=== PATIENT | female | born 1930 | race Caucasian/White ===

== ENCOUNTER 2020-08-07 14:45 | Inpatient (IN) | payer MEDICARE, OTHER ==
[~2020-08-07] VITALS: Ht 157.5 cm; Wt 45.2 kg
[2020-08-07] MEDS ORDERED: AMLO2.5T2 PO (15:38)
[2020-08-07] MEDS ORDERED: MIRT15TA3 PO (15:38)
[2020-08-07] MEDS ORDERED: CIPR250S2 PO (15:38)
[2020-08-07] MEDS ORDERED: RISP1TAB88 PO ×2 (15:38→15:53)
[2020-08-07] MEDS ORDERED: POTA8TAB PO (15:38)
[2020-08-07] MEDS ORDERED: MELA10TA7 PO (15:38)
[2020-08-07] MEDS ORDERED: RISP2TAB78 PO (15:38)
[2020-08-07] MEDS ORDERED: COLC0.6T45 PO (15:38)
[2020-08-07] MEDS ORDERED: FAMO20TA5 PO (15:38)
[2020-08-07] MEDS ORDERED: LEVO25TA4 PO (15:38)
[2020-08-07 15:39] VITALS: BP 117/74
[2020-08-07] MEDS ORDERED: BISACODYL 10 MG SUPP.RECT RC PRN (15:45)
[2020-08-07] MEDS ORDERED: risperiDONE 1 MG TABLET. PO PRN (15:45)
[2020-08-07] MEDS ORDERED: BISA10SU4 RC (15:53)
[2020-08-07] MEDS ORDERED: QUET50TA5 PO (15:53)
[2020-08-07] MEDS ORDERED: QUET25TA5 PO (15:53)
[2020-08-07] MEDS ORDERED: MAG HYDROX/AL HYDROX/SIMETH 30 ML ORAL.SUSP PO PRN (16:00)
[2020-08-07] MEDS ORDERED: ACETAMINOPHEN 325 MG TABLET PO PRN (16:00)
[2020-08-07] MEDS ORDERED: MAGNESIUM HYDROXIDE 2,400 MG/30 ML ORAL.SUSP. PO PRN (16:00)
[2020-08-07] MEDS ORDERED: METHYL SALICYLATE/MENTHOL TOPICAL OINTMENT 57GM TUBE. TP PRN (16:00)
[2020-08-07 19:47] LABS: BASO % 0 % (0-3); EOS % 0 % (0-3); HEMATOCRIT 35.2 % (36.0-47.0); HEMOGLOBIN 11.5 g/dL (12.0-15.5); LYMPH # 1.4 x10^3/uL (1.0-4.8); LYMPH % 16 % (24-48); MEAN CORPUSCULAR HEMOGLOBIN 29 pg (25-35); MEAN CORPUSCULAR HGB CONC 33 g/dL (31-37); MEAN CORPUSCULAR VOLUME 89 fL (79-100); MONO # 1.3 x10^3/uL (0.0-1.1); MONO % 15 % (0-9); NEUT % 69 % (31-73); PLATELET COUNT 325 x10^3/uL (140-400); RED BLOOD COUNT 3.98 x10^6/uL (3.50-5.40); RED CELL DISTRIBUTION WIDTH 14.7 % (11.5-14.5); WHITE BLOOD COUNT 8.7 x10^3/uL (4.0-11.0)
[2020-08-07 19:50] LABS: ALBUMIN/GLOBULIN RATIO 0.7 (1.0-1.7); CALCIUM 8.5 mg/dL (8.5-10.1); CREATININE 1.2 mg/dL (0.6-1.0); GFR 42.3; MAGNESIUM 2.2 mg/dL (1.8-2.4); POTASSIUM 3.8 mmol/L (3.5-5.1); TOTAL BILIRUBIN 0.3 mg/dL (0.2-1.0); TOTAL PROTEIN 7.1 g/dL (6.4-8.2)
[2020-08-07] MEDS: CIPROFLOXACIN HCL 250 MG TABLET PO SCH (20:02)
[2020-08-07] MEDS: risperiDONE 2 MG TABLET. PO SCH (20:03)
[2020-08-07] MEDS: MIRTAZAPINE 15 MG TABLET PO SCH (20:03)
[2020-08-07] MEDS: MELATONIN 3 MG TABLET PO SCH (20:04)
[2020-08-07] MEDS ORDERED: QUEtiapine 50 MG TABLET. PO SCH (21:00)
[2020-08-07] MEDS ORDERED: QUEtiapine 25 MG TABLET. PO SCH (21:00)
--- NOTE | 2020-08-07 22:09 | PDOC ---
Exam Note: Rambo Note: Please also refer to the separate dictated note~for this date of service dictated separately.~Patient seen individually. Discussed the patient with Nursing staff reviewed the chart.~Reviewed interim history and current functioning. Reviewed vital signs,~Labs/ Radiology~and current medications noted below. Continue current treatment with the changes noted in the dictated addendum note Assessment: Vital Signs/I&O: Vital Signs Date Time Temp Pulse Resp B/P (MAP) Pulse Ox O2 Delivery O2 Flow Rate FiO2 08/07/20 15:39 97.8 99 20 117/74 (88) 95 Room Air Labs: Laboratory Tests Test 08/07/20 19:19 White Blood Count 8.7 x10^3/uL (4.0-11.0) Red Blood Count 3.98 x10^6/uL (3.50-5.40) Hemoglobin 11.5 g/dL (12.0-15.5) L Hematocrit 35.2 % (36.0-47.0) L Mean Corpuscular Volume 89 fL (79-100) Mean Corpuscular Hemoglobin 29 pg (25-35) Mean Corpuscular Hemoglobin Concent 33 g/dL (31-37) Red Cell Distribution Width 14.7 % (11.5-14.5) H Platelet Count 325 x10^3/uL (140-400) Neutrophils (%) (Auto) 69 % (31-73) Lymphocytes (%) (Auto) 16 % (24-48) L Monocytes (%) (Auto) 15 % (0-9) H Eosinophils (%) (Auto) 0 % (0-3) Basophils (%) (Auto) 0 % (0-3) Neutrophils # (Auto) 6.0 x10^3uL (1.8-7.7) Lymphocytes # (Auto) 1.4 x10^3/uL (1.0-4.8) Monocytes # (Auto) 1.3 x10^3/uL (0.0-1.1) H Eosinophils # (Auto) 0.0 x10^3/uL (0.0-0.7) Basophils # (Auto) 0.0 x10^3/uL (0.0-0.2) D-Dimer (Michelle) 6.05 mg/L (0.00-0.50) H Sodium Level 144 mmol/L (136-145) Potassium Level 3.8 mmol/L (3.5-5.1) Chloride Level 107 mmol/L (98-107) Carbon Dioxide Level 27 mmol/L (21-32) Anion Gap 10 (6-14) Blood Urea Nitrogen 20 mg/dL (7-20) Creatinine 1.2 mg/dL (0.6-1.0) H Estimated GFR (Cockcroft-Gault) 42.3 BUN/Creatinine Ratio 17 (6-20) Glucose Level 115 mg/dL (70-99) H Calcium Level 8.5 mg/dL (8.5-10.1) Magnesium Level 2.2 mg/dL (1.8-2.4) Total Bilirubin 0.3 mg/dL (0.2-1.0) Aspartate Amino Transferase (AST) 17 U/L (15-37) Alanine Aminotransferase (ALT) 21 U/L (14-59) Alkaline Phosphatase 133 U/L (46-116) H Total Protein 7.1 g/dL (6.4-8.2) Albumin 3.0 g/dL (3.4-5.0) L Albumin/Globulin Ratio 0.7 (1.0-1.7) L Current Medications: Meds: Current Medications Medications (Trade) Dose Ordered Sig/Kahlil Route PRN Reason Start Time Stop Time Status Last Admin Dose Admin Mirtazapine (Remeron) 15 mg HS PO 08/07/20 21:00 08/07/20 20:03 Risperidone (RisperDAL) 2 mg HS PO 08/07/20 21:00 08/07/20 20:03 Ciprofloxacin (Cipro) 250 mg BID PO 08/07/20 21:00 08/09/20 21:01 08/07/20 20:02 Melatonin (Melatonin) 9 mg HS PO 08/07/20 21:00 08/07/20 20:04 Quetiapine Fumarate (SEROquel) 50 mg HS PO 08/07/20 21:00 08/07/20 23:59 08/07/20 20:03 Olanzapine (ZyPREXA ZYDIS) 1.25 mg PRN Q2HRS PRN PO PSYCHOSIS 08/07/20 18:00 08/07/20 21:25 I have reviewed the current psychotropics carefully including drug interactions. Risk benefit ratio favors no change other than as noted in my dictated progress note. ELLE SALVADOR MD Aug 07, 2020 22:09
--- NOTE | 2020-08-07 22:16 | HP ---
ADMIT DATE: 08/07/2020 PSYCHIATRIC ADMISSION HISTORY/EVALUATION This note covers elements not covered in my initial note of 08/07/2020. IDENTIFYING DATA: The patient is an 89-year-old female referred from [facility] in [place], [place], referred by Dr. Diego, her psychiatrist and the patient's primary care physician, Dr. Luis Carlos Paz on account of worsening confusion and paranoia. The patient believed that staff were murdering people. She was impulsive, agitated, refusing medications. She was ramming the staff with her wheelchair, tugging at and pushing peers, paranoid. Adjustments have been made in her psychotropics including Remeron, Seroquel, Geodon, melatonin and she remained on one-on-one with staff members and at times had to be placed on the floor on a pad due to her disruptive, unmanageable behaviors. Attempts at reduced stimulation, adjustments in her psychotropics had all failed resulting in this referral. CHIEF COMPLAINT: "They are all there. I don't know." The patient was rambling in her speech. Unable to stand or sit still and I had to follow her around the unit. She walked rapidly down the unit. She saw the name plate on one of the doors which said environmental services and she was able to read it accurately. She is being admitted by her power of county attorney, Reid Maza. HISTORY OF PRESENT ILLNESS: The patient has a history of dementia, Alzheimer's vascular type. She has been residing at the above facility, recently getting more confused, paranoid, agitated. She does have a UTI that is being treated, which could be worsening all of the above. She has had some sleep and appetite changes. No active suicidal or homicidal ideation. PAST PSYCHIATRIC HISTORY: As above. MEDICAL HISTORY: Positive for UTI, hypertension, hypothyroidism, gout, hypokalemia, status post subdural hematoma from a fall a few weeks back, GERD, osteoarthritis of cervical radiculopathy. ALLERGIES: EFFEXOR, PROTONIX, PENICILLIN, PERCOCET, ZOLOFT. CODE STATUS: DNR. DIET: Regular. CURRENT PSYCHOTROPICS: Melatonin 10 mg at bedtime, Remeron 15 mg at bedtime, Seroquel 50 mg at bedtime on 08/07/2020 and Seroquel 25 mg b.i.d., Zyprexa was added p.r.n. at admission. FAMILY HISTORY: Noncontributory. SOCIAL HISTORY: No history of alcohol, drug abuse, physical, sexual or elder abuse. She is not known to be a perpetrator. REACTION TO HOSPITALIZATION: The patient oblivious to this. ASSETS: Supportive family, stable living at the facility. REVIEW OF SYSTEMS: No CV, , pulmonary, eye, ENT system symptoms on review. Reliability poor. The patient is rambling in her speech, unable to sit still, distractible. MENTAL STATUS EXAMINATION: The patient is oriented to herself. Insight, judgment, recent and remote memory, attention, concentration, fund of knowledge poor, consistent with her diagnoses. IMPRESSION: Major neurocognitive disorder, Alzheimer, vascular with delusion, depression, behavioral disturbance; anxiety disorder, unspecified; impulse control disorder, unspecified. Rest as above. PLAN: Admit to Geropsychiatry Unit at [facility]. I will see the patient daily individually from a psychiatric standpoint. Medical followup with Dr. Flores/Dr. Bishop. The patient does have a UTI and is on Cipro for this and TSH is 5.84. We will defer to Dr. Bishop/Dr. Flores for adjustment of Synthroid. I will see her daily individually, adjust psychotropics post baseline assessment. ESTIMATED LENGTH OF STAY: 10-12 days. DISPOSITION: Plans back to [facility] when stable. MAN Andrew SALVADOR MD DR: EVERETT/carol JOB#: [id number] / [id number]
[2020-08-08] MEDS: LEVOTHYROXINE 25 MCG TABLET. PO SCH (04:52)
[2020-08-08 06:15] VITALS: BP 134/83
[2020-08-08] MEDS: CIPROFLOXACIN HCL 250 MG TABLET PO SCH ×2 (08:07→20:17)
[2020-08-08] MEDS: FAMOTIDINE 20 MG TABLET PO SCH (08:08)
[2020-08-08] MEDS: COLCHICINE 0.6 MG TABLET. PO SCH (08:09)
[2020-08-08] MEDS: risperiDONE 1 MG TABLET. PO SCH (08:09)
[2020-08-08] MEDS: amLODIPine BESYLATE 2.5 MG TABLET PO SCH (08:10)
[2020-08-08] MEDS: QUEtiapine 25 MG TABLET. PO SCH ×2 (08:11→20:18)
[2020-08-08] MEDS: POTASSIUM CHLORIDE 10 MEQ TABLET.ER. PO SCH (08:11)
[2020-08-08] MEDS ORDERED: LEVOTHYROXINE 25 MCG TABLET. PO SCH (09:00)
--- NOTE | 2020-08-08 10:28 | CONS ---
DATE OF CONSULTATION: 08/08/2020 ATTENDING PHYSICIAN: Dr. Cates. HISTORY OF PRESENT ILLNESS: We are asked to see this patient for medical consultation. The patient is an 89-year-old female, [facility] resident from [place], [place]. She has had underlying dementia with impulsive behavior, agitation, refuse meds, rambling staff as a wheelchair and accusing staff and murdering people. She has some underlying paranoia. She is admitted to the [facility]. PAST MEDICAL HISTORY: Significant for major depression, hallucination, hypertension, hypothyroidism, gout, hypokalemia, generalized anxiety, traumatic brain injury and bleed, subdural hematoma, gastroesophageal reflux disease, cervical radiculopathy and generalized debilitation. ALLERGIES: SHE HAS ALLERGIES TO PENICILLIN, TYLENOL, OXYCODONE, PROTONIX, ZOLOFT, AND EFFEXOR. EXACT REACTIONS UNCLEAR. CURRENT MEDICINES: Include amlodipine, Cipro, colchicine, famotidine, Synthroid, melatonin, Remeron, potassium, Seroquel, and risperidone. SOCIAL HISTORY: She is a nonsmoker, nondrinker. FAMILY HISTORY: Unobtainable. REVIEW OF SYSTEMS: Unobtainable due to the patient's current confused state. PHYSICAL EXAMINATION: GENERAL: When I saw her, this is a pleasant, thin, cachectic female. INITIAL VITAL SIGNS: Showed a blood pressure 117/74, pulse is 99 and regular, temperature 97.8 degrees Fahrenheit, oxygen saturation 95% on room air. HEENT: Head is without trauma. Pupils are reactive. Sclerae are nonicteric. The oropharynx is clear. NECK: Supple. No stridor or lesions. LUNGS: Otherwise clear. CARDIOVASCULAR: Showed regular heart tones. No gallops. ABDOMEN: Soft, scaphoid, nontender. EXTREMITIES: Showed slight edema of the right ankle. The left ankle appears normal. SKIN: Warm and dry. We could not assess a full neurologic exam due to the patient's dementia. PERTINENT LABORATORY STUDIES: The hemoglobin is 11.5 g/dL with white count of 8700. Creatinine is 1.2 mg/dL, nonfasting blood sugar 115 mg/dL. Electrolytes and liver panel all within normal range. ASSESSMENT: 1. This 89-year-old female has profound dementia with behavioral issues. 2. Paranoid behavior. 3. Degenerative arthritis. 4. History of subdural hematoma. 5. Essential hypertension. 6. History of cervical radiculopathy. 7. Hypothyroidism, on replacement. RECOMMENDATIONS: 1. The patient is stable at this time from a medical standpoint. 2. I reviewed her meds and they should be continued. Thank you again for asking me to see the patient for medical consultation. We should follow along closely during her inpatient stay. KIAN DOTSON MD DR: DOMINGO/carol JOB#: [id number] / [id number]
[2020-08-08 11:14] LABS: THYROID STIM HORMONE (TSH) 5.719 uIU/mL (0.358-3.740)
[2020-08-08] MEDS: risperiDONE 2 MG TABLET. PO SCH (20:16)
[2020-08-08] MEDS: MIRTAZAPINE 15 MG TABLET PO SCH (20:17)
[2020-08-08] MEDS: MELATONIN 3 MG TABLET PO SCH (20:17)
--- NOTE | 2020-08-08 21:30 | PDOC ---
Exam Note: Rambo Note: Please also refer to the separate dictated note~for this date of service dictated separately.~Patient seen individually. Discussed the patient with Nursing staff reviewed the chart.~Reviewed interim history and current functioning. Reviewed vital signs,~Labs/ Radiology~and current medications noted below. Continue current treatment with the changes noted in the dictated addendum note Assessment: Vital Signs/I&O: Vital Signs Date Time Temp Pulse Resp B/P (MAP) Pulse Ox O2 Delivery O2 Flow Rate FiO2 08/08/20 08:10 105 134/83 08/08/20 06:15 98.1 18 92 08/07/20 15:39 Room Air I & O 08/07/20 08/07/20 08/08/20 15:00 23:00 07:00 Intake Total 480 ml Balance 480 ml Current Medications: Meds: Current Medications Medications (Trade) Dose Ordered Sig/Kahlil Route PRN Reason Start Time Stop Time Status Last Admin Dose Admin Amlodipine Besylate (Norvasc) 2.5 mg DAILY PO 08/08/20 09:00 08/08/20 08:10 Colchicine (Colcrys) 0.6 mg DAILY PO 08/08/20 09:00 08/08/20 08:09 Famotidine (Pepcid) 20 mg DAILY08 PO 08/08/20 08:00 08/08/20 08:08 Risperidone (RisperDAL) 1 mg DAILY08 PO 08/08/20 08:00 08/08/20 08:09 Potassium Chloride (Klor-Con) 10 meq DAILYWBKFT PO 08/08/20 08:00 08/08/20 08:11 Quetiapine Fumarate (SEROquel) 25 mg 0800,2100 PO 08/08/20 08:00 08/09/20 23:59 08/08/20 20:18 Levothyroxine Sodium (Synthroid) 25 mcg DAILY06 PO 08/08/20 06:00 08/08/20 04:52 I have reviewed the current psychotropics carefully including drug interactions. Risk benefit ratio favors no change other than as noted in my dictated progress note. Diagnosis: Problems: (1) Major neurocognitive disorder (2) Dementia in Alzheimer's disease with delusions (3) Dementia in Alzheimer's disease with depression (4) Dementia in Alzheimer's disease with early onset with behavioral disturbance (5) Dementia, vascular, with delusions (6) Dementia, vascular, with depression (7) Anxiety disorder, unspecified (8) Impulse control disorder, unspecified ELLE SALVADOR MD Aug 08, 2020 21:30
[2020-08-09 01:06] LABS: THYROXINE 5.6 ug/dL (4.5-12.0)
[2020-08-09] MEDS: LEVOTHYROXINE 25 MCG TABLET. PO SCH (05:01)
[2020-08-09 05:37] LABS: HEMOGLOBIN A1C 5.4 % (4.8-5.6)
[2020-08-09 06:33] VITALS: BP 127/83
[2020-08-09] MEDS: CIPROFLOXACIN HCL 250 MG TABLET PO SCH ×2 (07:49→20:05)
[2020-08-09] MEDS: risperiDONE 1 MG TABLET. PO SCH (07:49)
[2020-08-09] MEDS: COLCHICINE 0.6 MG TABLET. PO SCH (07:49)
[2020-08-09] MEDS: QUEtiapine 25 MG TABLET. PO SCH ×2 (07:49→20:07)
[2020-08-09] MEDS: POTASSIUM CHLORIDE 10 MEQ TABLET.ER. PO SCH (07:49)
[2020-08-09] MEDS: FAMOTIDINE 20 MG TABLET PO SCH (07:49)
[2020-08-09] MEDS: amLODIPine BESYLATE 2.5 MG TABLET PO SCH (07:50)
[2020-08-09] MEDS: MIRTAZAPINE 15 MG TABLET PO SCH (20:05)
[2020-08-09] MEDS: MELATONIN 3 MG TABLET PO SCH (20:05)
[2020-08-09] MEDS: risperiDONE 2 MG TABLET. PO SCH (20:05)
--- NOTE | 2020-08-09 22:09 | PDOC ---
Exam Note: Rambo Note: Please also refer to the separate dictated note~for this date of service dictated separately.~Patient seen individually. Discussed the patient with Nursing staff reviewed the chart.~Reviewed interim history and current functioning. Reviewed vital signs,~Labs/ Radiology~and current medications noted below. Continue current treatment with the changes noted in the dictated addendum note Assessment: Vital Signs/I&O: Vital Signs Date Time Temp Pulse Resp B/P (MAP) Pulse Ox O2 Delivery O2 Flow Rate FiO2 08/09/20 16:12 97.6 08/09/20 07:50 100 127/83 08/09/20 06:33 16 94 Room Air I & O 08/08/20 08/08/20 08/09/20 15:00 23:00 07:00 Intake Total 600 ml 240 ml Balance 600 ml 240 ml Current Medications: Meds: Current Medications Medications (Trade) Dose Ordered Sig/Kahlil Route PRN Reason Start Time Stop Time Status Last Admin Dose Admin Amlodipine Besylate (Norvasc) 2.5 mg DAILY PO 08/08/20 09:00 08/09/20 07:50 Colchicine (Colcrys) 0.6 mg DAILY PO 08/08/20 09:00 08/09/20 07:49 Famotidine (Pepcid) 20 mg DAILY08 PO 08/08/20 08:00 08/09/20 07:49 Levothyroxine Sodium (Synthroid) 25 mcg DAILY PO 08/08/20 09:00 08/07/20 19:16 DC Mirtazapine (Remeron) 15 mg HS PO 08/07/20 21:00 08/09/20 20:05 Risperidone (RisperDAL) 1 mg DAILY08 PO 08/08/20 08:00 08/09/20 07:49 Risperidone (RisperDAL) 2 mg HS PO 08/07/20 21:00 08/09/20 20:05 Ciprofloxacin (Cipro) 250 mg BID PO 08/07/20 21:00 08/09/20 21:01 DC 08/09/20 20:05 Melatonin (Melatonin) 9 mg HS PO 08/07/20 21:00 08/09/20 20:05 Potassium Chloride (Klor-Con) 10 meq DAILYWBKFT PO 08/08/20 08:00 08/09/20 07:49 Bisacodyl (Dulcolax Supp) 10 mg PRN DAILY PRN RC 2ND CHOICE CONSTIPATION 08/07/20 15:45 Quetiapine Fumarate (SEROquel) 25 mg 0800,2100 PO 08/07/20 21:00 08/07/20 18:22 DC Quetiapine Fumarate (SEROquel) 50 mg HS PO 08/07/20 21:00 08/07/20 23:59 DC 08/07/20 20:03 Risperidone (RisperDAL) 1 mg PRN TID PRN PO AGITATION/DELIRIUM 08/07/20 15:45 Acetaminophen (Tylenol) 650 mg PRN Q6HRS PRN PO MILD PAIN / TEMP > 100.3'F 08/07/20 16:00 UNV Multi-Ingredient Ointment (Analgesic [place]) 1 aneesh PRN QID PRN TP MUSCLE PAIN 08/07/20 16:00 Al Hydroxide/Mg Hydroxide (Mylanta Plus Xs) 15 ml PRN AFTMEALHC PRN PO DYSPEPSIA 08/07/20 16:00 Magnesium Hydroxide (Milk Of Magnesia) 2,400 mg PRN QHS PRN PO 1ST CHOICE CONSTIPATION 08/07/20 16:00 Olanzapine (ZyPREXA ZYDIS) 1.25 mg PRN Q2HRS PRN PO PSYCHOSIS 08/07/20 18:00 08/08/20 20:19 Quetiapine Fumarate (SEROquel) 25 mg 0800,2100 PO 08/08/20 08:00 08/09/20 23:59 08/09/20 20:07 Levothyroxine Sodium (Synthroid) 25 mcg DAILY06 PO 08/08/20 06:00 08/09/20 05:01 I have reviewed the current psychotropics carefully including drug interactions. Risk benefit ratio favors no change other than as noted in my dictated progress note. Diagnosis: Problems: (1) Impulse control disorder, unspecified (2) Anxiety disorder, unspecified (3) Dementia, vascular, with depression (4) Dementia, vascular, with delusions (5) Dementia in Alzheimer's disease with depression (6) Dementia in Alzheimer's disease with delusions (7) Major neurocognitive disorder (8) Dementia in Alzheimer's disease with early onset with behavioral disturbance ELLE SALVADOR MD Aug 09, 2020 22:09
[2020-08-10] MEDS: LEVOTHYROXINE 25 MCG TABLET. PO SCH (05:58)
[2020-08-10 06:52] VITALS: BP 126/82
[2020-08-10] MEDS: amLODIPine BESYLATE 2.5 MG TABLET PO SCH (08:32)
[2020-08-10] MEDS: COLCHICINE 0.6 MG TABLET. PO SCH (08:32)
[2020-08-10] MEDS: FAMOTIDINE 20 MG TABLET PO SCH (08:32)
[2020-08-10] MEDS: POTASSIUM CHLORIDE 10 MEQ TABLET.ER. PO SCH (08:32)
[2020-08-10] MEDS: risperiDONE 1 MG TABLET. PO SCH (08:33)
[2020-08-10 15:49] VITALS: BP 105/70
[2020-08-10] MEDS: MIRTAZAPINE 15 MG TABLET PO SCH (19:37)
[2020-08-10] MEDS: MELATONIN 3 MG TABLET PO SCH (19:37)
[2020-08-10] MEDS: risperiDONE 2 MG TABLET. PO SCH (19:37)
--- NOTE | 2020-08-10 22:02 | PDOC ---
Exam Note: Rambo Note: Please also refer to the separate dictated note~for this date of service dictated separately.~Patient seen individually. Discussed the patient with Nursing staff reviewed the chart.~Reviewed interim history and current functioning. Reviewed vital signs,~Labs/ Radiology~and current medications noted below. Continue current treatment with the changes noted in the dictated addendum note Assessment: Vital Signs/I&O: Vital Signs Date Time Temp Pulse Resp B/P (MAP) Pulse Ox O2 Delivery O2 Flow Rate FiO2 08/10/20 15:49 98.5 102 17 105/70 (82) 98 08/09/20 06:33 Room Air I & O 08/09/20 08/09/20 08/10/20 14:59 22:59 06:59 Intake Total 440 ml 100 ml Balance 440 ml 100 ml Current Medications: Meds: Current Medications Medications (Trade) Dose Ordered Sig/Kahlil Route PRN Reason Start Time Stop Time Status Last Admin Dose Admin Amlodipine Besylate (Norvasc) 2.5 mg DAILY PO 08/08/20 09:00 08/10/20 08:32 Colchicine (Colcrys) 0.6 mg DAILY PO 08/08/20 09:00 08/10/20 08:32 Famotidine (Pepcid) 20 mg DAILY08 PO 08/08/20 08:00 08/10/20 08:32 Levothyroxine Sodium (Synthroid) 25 mcg DAILY PO 08/08/20 09:00 08/07/20 19:16 DC Mirtazapine (Remeron) 15 mg HS PO 08/07/20 21:00 08/10/20 19:37 Risperidone (RisperDAL) 1 mg DAILY08 PO 08/08/20 08:00 08/10/20 08:33 Risperidone (RisperDAL) 2 mg HS PO 08/07/20 21:00 08/10/20 19:37 Ciprofloxacin (Cipro) 250 mg BID PO 08/07/20 21:00 08/09/20 21:01 DC 08/09/20 20:05 Melatonin (Melatonin) 9 mg HS PO 08/07/20 21:00 08/10/20 19:37 Potassium Chloride (Klor-Con) 10 meq DAILYWBKFT PO 08/08/20 08:00 08/10/20 08:32 Bisacodyl (Dulcolax Supp) 10 mg PRN DAILY PRN RC 2ND CHOICE CONSTIPATION 08/07/20 15:45 Quetiapine Fumarate (SEROquel) 25 mg 0800,2100 PO 08/07/20 21:00 08/07/20 18:22 DC Quetiapine Fumarate (SEROquel) 50 mg HS PO 08/07/20 21:00 08/07/20 23:59 DC 08/07/20 20:03 Risperidone (RisperDAL) 1 mg PRN TID PRN PO AGITATION/DELIRIUM 08/07/20 15:45 Acetaminophen (Tylenol) 650 mg PRN Q6HRS PRN PO MILD PAIN / TEMP > 100.3'F 08/07/20 16:00 UNV Multi-Ingredient Ointment (Analgesic [place]) 1 aneesh PRN QID PRN TP MUSCLE PAIN 08/07/20 16:00 Al Hydroxide/Mg Hydroxide (Mylanta Plus Xs) 15 ml PRN AFTMEALHC PRN PO DYSPEPSIA 08/07/20 16:00 Magnesium Hydroxide (Milk Of Magnesia) 2,400 mg PRN QHS PRN PO 1ST CHOICE CONSTIPATION 08/07/20 16:00 Olanzapine (ZyPREXA ZYDIS) 1.25 mg PRN Q2HRS PRN PO PSYCHOSIS 08/07/20 18:00 08/08/20 20:19 Quetiapine Fumarate (SEROquel) 25 mg 0800,2100 PO 08/08/20 08:00 08/09/20 23:59 DC 08/09/20 20:07 Levothyroxine Sodium (Synthroid) 25 mcg DAILY06 PO 08/08/20 06:00 08/10/20 05:58 I have reviewed the current psychotropics carefully including drug interactions. Risk benefit ratio favors no change other than as noted in my dictated progress note. Diagnosis: Problems: (1) Impulse control disorder, unspecified (2) Anxiety disorder, unspecified (3) Dementia, vascular, with depression (4) Dementia, vascular, with delusions (5) Dementia in Alzheimer's disease with depression (6) Dementia in Alzheimer's disease with delusions (7) Major neurocognitive disorder (8) Dementia in Alzheimer's disease with early onset with behavioral disturbance ELLE SALVADOR MD Aug 10, 2020 22:02
[2020-08-11] MEDS: LEVOTHYROXINE 25 MCG TABLET. PO SCH (05:24)
[2020-08-11 06:07] VITALS: BP 131/83
--- NOTE | 2020-08-11 08:40 | PDOC ---
Exam Note: Rambo Note: This note is a late entry for 08/08/2020 covers elements not covered in my initial note. Subjective: The patient was seen individually in the evening of 08/08/2020 with Jeanette FRIEDMAN, discussed and reviewed the chart. The patient slept 6 hours previous night. Previous night the patient had to be in the quiet hallway because she was extremely restless, agitated, unable to settle down and quite disruptive to others on the unit. She was up at 2 a.m. in the morning. She remains quite confused, intermittently psychotic, agitated. Review of Systems: No CV, , pulmonary, eye, ENT system symptoms on review. Reliability poor. Mental Status Exam: The patient is oriented herself. Insight and judgement, recent and remote memory, attention and concentration, fund of knowledge is poor consistent with her diagnoses. Laboratory Data: Reviewed. Impression: Major neurocognitive disorder Alzheimer vascular with delusion, depression, behavioral disturbance. Anxiety disorder unspecified. Impulse control disorder unspecified. Plan: Continue current psychotropics. UTI is being treated, on Cipro. Once the UTI resolves we will consider further adjustments in her psychotropics depending on her agitation and confusion. Assessment: Vital Signs/I&O: Vital Signs Date Time Temp Pulse Resp B/P (MAP) Pulse Ox O2 Delivery O2 Flow Rate FiO2 08/11/20 06:07 98.1 84 18 131/83 (99) 95 08/09/20 06:33 Room Air I & O 08/10/20 08/10/20 08/11/20 14:59 22:59 06:59 Intake Total 720 ml 380 ml Balance 720 ml 380 ml Current Medications: Meds: Current Medications Medications (Trade) Dose Ordered Sig/Kahlil Route PRN Reason Start Time Stop Time Status Last Admin Dose Admin Amlodipine Besylate (Norvasc) 2.5 mg DAILY PO 08/08/20 09:00 08/10/20 08:32 Colchicine (Colcrys) 0.6 mg DAILY PO 08/08/20 09:00 08/10/20 08:32 Famotidine (Pepcid) 20 mg DAILY08 PO 08/08/20 08:00 08/10/20 08:32 Levothyroxine Sodium (Synthroid) 25 mcg DAILY PO 08/08/20 09:00 08/07/20 19:16 DC Mirtazapine (Remeron) 15 mg HS PO 08/07/20 21:00 08/10/20 19:37 Risperidone (RisperDAL) 1 mg DAILY08 PO 08/08/20 08:00 08/10/20 08:33 Risperidone (RisperDAL) 2 mg HS PO 08/07/20 21:00 08/10/20 19:37 Ciprofloxacin (Cipro) 250 mg BID PO 08/07/20 21:00 08/09/20 21:01 DC 08/09/20 20:05 Melatonin (Melatonin) 9 mg HS PO 08/07/20 21:00 08/10/20 19:37 Potassium Chloride (Klor-Con) 10 meq DAILYWBKFT PO 08/08/20 08:00 08/10/20 08:32 Bisacodyl (Dulcolax Supp) 10 mg PRN DAILY PRN RC 2ND CHOICE CONSTIPATION 08/07/20 15:45 Quetiapine Fumarate (SEROquel) 25 mg 0800,2100 PO 08/07/20 21:00 08/07/20 18:22 DC Quetiapine Fumarate (SEROquel) 50 mg HS PO 08/07/20 21:00 08/07/20 23:59 DC 08/07/20 20:03 Risperidone (RisperDAL) 1 mg PRN TID PRN PO AGITATION/DELIRIUM 08/07/20 15:45 Acetaminophen (Tylenol) 650 mg PRN Q6HRS PRN PO MILD PAIN / TEMP > 100.3'F 08/07/20 16:00 UNV Multi-Ingredient Ointment (Analgesic [place]) 1 aneesh PRN QID PRN TP MUSCLE PAIN 08/07/20 16:00 Al Hydroxide/Mg Hydroxide (Mylanta Plus Xs) 15 ml PRN AFTMEALHC PRN PO DYSPEPSIA 08/07/20 16:00 Magnesium Hydroxide (Milk Of Magnesia) 2,400 mg PRN QHS PRN PO 1ST CHOICE CONSTIPATION 08/07/20 16:00 Olanzapine (ZyPREXA ZYDIS) 1.25 mg PRN Q2HRS PRN PO PSYCHOSIS 08/07/20 18:00 08/08/20 20:19 Quetiapine Fumarate (SEROquel) 25 mg 0800,2100 PO 08/08/20 08:00 08/09/20 23:59 DC 08/09/20 20:07 Levothyroxine Sodium (Synthroid) 25 mcg DAILY06 PO 08/08/20 06:00 08/11/20 05:24 I have reviewed the current psychotropics carefully including drug interactions. Risk benefit ratio favors no change other than as noted in my dictated progress note. Diagnosis: Problems: (1) Impulse control disorder, unspecified (2) Anxiety disorder, unspecified (3) Dementia, vascular, with depression (4) Dementia, vascular, with delusions (5) Dementia in Alzheimer's disease with depression (6) Dementia in Alzheimer's disease with delusions (7) Major neurocognitive disorder (8) Dementia in Alzheimer's disease with early onset with behavioral disturbance ELLE SALVADOR MD Aug 11, 2020 08:39
--- NOTE | 2020-08-11 08:56 | PDOC ---
Exam Note: Rambo Note: This note is a late entry for 08/09/2020 covers elements not covered in my initial note. Subjective: The patient was seen individually in the evening of 08/09/2020 with Jeanette FRIEDMAN, discussed and reviewed the chart. The patient slept 8 hours previous night. She was agitated previous evening. Received Zyprexa p.r.n., did better after that, less combative, remains restless, unsteady on her feet. Review of Systems: No CV, , pulmonary, eye, ENT system symptoms on review. Mental Status Exam: The patient is oriented herself. Insight and judgement, recent and remote memory, attention and concentration, fund of knowledge is poor consistent with her diagnoses. Laboratory Data: Reviewed. Impression: Major neurocognitive disorder Alzheimer vascular with delusion, depression, behavioral disturbance. Anxiety disorder unspecified. Impulse control disorder unspecified. Plan: No change from initial note. Assessment: Vital Signs/I&O: Vital Signs Date Time Temp Pulse Resp B/P (MAP) Pulse Ox O2 Delivery O2 Flow Rate FiO2 08/11/20 06:07 98.1 84 18 131/83 (99) 95 08/09/20 06:33 Room Air I & O 08/10/20 08/10/20 08/11/20 14:59 22:59 06:59 Intake Total 720 ml 380 ml Balance 720 ml 380 ml Current Medications: Meds: Current Medications Medications (Trade) Dose Ordered Sig/Kahlil Route PRN Reason Start Time Stop Time Status Last Admin Dose Admin Amlodipine Besylate (Norvasc) 2.5 mg DAILY PO 08/08/20 09:00 08/10/20 08:32 Colchicine (Colcrys) 0.6 mg DAILY PO 08/08/20 09:00 08/10/20 08:32 Famotidine (Pepcid) 20 mg DAILY08 PO 08/08/20 08:00 08/10/20 08:32 Levothyroxine Sodium (Synthroid) 25 mcg DAILY PO 08/08/20 09:00 08/07/20 19:16 DC Mirtazapine (Remeron) 15 mg HS PO 08/07/20 21:00 08/10/20 19:37 Risperidone (RisperDAL) 1 mg DAILY08 PO 08/08/20 08:00 08/10/20 08:33 Risperidone (RisperDAL) 2 mg HS PO 08/07/20 21:00 08/10/20 19:37 Ciprofloxacin (Cipro) 250 mg BID PO 08/07/20 21:00 08/09/20 21:01 DC 08/09/20 20:05 Melatonin (Melatonin) 9 mg HS PO 08/07/20 21:00 08/10/20 19:37 Potassium Chloride (Klor-Con) 10 meq DAILYWBKFT PO 08/08/20 08:00 08/10/20 08:32 Bisacodyl (Dulcolax Supp) 10 mg PRN DAILY PRN RC 2ND CHOICE CONSTIPATION 08/07/20 15:45 Quetiapine Fumarate (SEROquel) 25 mg 0800,2099 PO 08/07/20 21:00 08/07/20 18:22 DC Quetiapine Fumarate (SEROquel) 50 mg HS PO 08/07/20 21:00 08/07/20 23:59 DC 08/07/20 20:03 Risperidone (RisperDAL) 1 mg PRN TID PRN PO AGITATION/DELIRIUM 08/07/20 15:45 Acetaminophen (Tylenol) 650 mg PRN Q6HRS PRN PO MILD PAIN / TEMP > 100.3'F 08/07/20 16:00 UNV Multi-Ingredient Ointment (Analgesic [place]) 1 aneesh PRN QID PRN TP MUSCLE PAIN 08/07/20 16:00 Al Hydroxide/Mg Hydroxide (Mylanta Plus Xs) 15 ml PRN AFTMEALHC PRN PO DYSPEPSIA 08/07/20 16:00 Magnesium Hydroxide (Milk Of Magnesia) 2,400 mg PRN QHS PRN PO 1ST CHOICE CONSTIPATION 08/07/20 16:00 Olanzapine (ZyPREXA ZYDIS) 1.25 mg PRN Q2HRS PRN PO PSYCHOSIS 08/07/20 18:00 08/08/20 20:19 Quetiapine Fumarate (SEROquel) 25 mg 0800,2099 PO 08/08/20 08:00 08/09/20 23:59 DC 08/09/20 20:07 Levothyroxine Sodium (Synthroid) 25 mcg DAILY06 PO 08/08/20 06:00 08/11/20 05:24 I have reviewed the current psychotropics carefully including drug interactions. Risk benefit ratio favors no change other than as noted in my dictated progress note. 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
--- NOTE | 2020-08-11 09:18 | PDOC ---
Exam Note: Rambo Note: This note is a late entry for 08/10/2020 covers elements not covered in my initial note. Subjective: The patient was reviewed in the morning of 08/10/2020 for a treatment team meeting with Gaby Shaw, Robyn Oseguera and Danielle (social media manager), Paty, activity therapy and Radha FRIEDMAN, discussed and reviewed the chart. The patient slept 7 hours previous night. Her daughter Farhana attended the conference. We reviewed the patients history at length, diagnoses, treatment plan. Farhana shared that her mother is generally very social, interactive and enjoys this. The patient does have UTI and has been started on Cipro. TSH was 5.84. We may need to repeat it again. Review of Systems: She is in a wheelchair and is a high fall risk. No CV, , pulmonary, eye, ENT system symptoms on review. Mental Status Exam: The patient is oriented herself. Insight and judgement, recent and remote memory, attention and concentration, fund of knowledge is poor consistent with her diagnoses. Laboratory Data: Reviewed. Impression: Major neurocognitive disorder Alzheimer vascular with delusion, depression, behavioral disturbance. Anxiety disorder unspecified. Impulse control disorder unspecified. Plan: Continue rest of the psychotropics unchanged. Assessment: Vital Signs/I&O: Vital Signs Date Time Temp Pulse Resp B/P (MAP) Pulse Ox O2 Delivery O2 Flow Rate FiO2 08/11/20 06:07 98.1 84 18 131/83 (99) 95 08/09/20 06:33 Room Air I & O 08/10/20 08/10/20 08/11/20 15:00 23:00 07:00 Intake Total 720 ml 380 ml Balance 720 ml 380 ml Current Medications: Meds: Current Medications Medications (Trade) Dose Ordered Sig/Kahlil Route PRN Reason Start Time Stop Time Status Last Admin Dose Admin Amlodipine Besylate (Norvasc) 2.5 mg DAILY PO 08/08/20 09:00 08/10/20 08:32 Colchicine (Colcrys) 0.6 mg DAILY PO 08/08/20 09:00 08/10/20 08:32 Famotidine (Pepcid) 20 mg DAILY08 PO 08/08/20 08:00 08/10/20 08:32 Levothyroxine Sodium (Synthroid) 25 mcg DAILY PO 08/08/20 09:00 08/07/20 19:16 DC Mirtazapine (Remeron) 15 mg HS PO 08/07/20 21:00 08/10/20 19:37 Risperidone (RisperDAL) 1 mg DAILY08 PO 08/08/20 08:00 08/10/20 08:33 Risperidone (RisperDAL) 2 mg HS PO 08/07/20 21:00 08/10/20 19:37 Ciprofloxacin (Cipro) 250 mg BID PO 08/07/20 21:00 08/09/20 21:01 DC 08/09/20 20:05 Melatonin (Melatonin) 9 mg HS PO 08/07/20 21:00 08/10/20 19:37 Potassium Chloride (Klor-Con) 10 meq DAILYWBKFT PO 08/08/20 08:00 08/10/20 08:32 Bisacodyl (Dulcolax Supp) 10 mg PRN DAILY PRN RC 2ND CHOICE CONSTIPATION 08/07/20 15:45 Quetiapine Fumarate (SEROquel) 25 mg 0800,2099 PO 08/07/20 21:00 08/07/20 18:22 DC Quetiapine Fumarate (SEROquel) 50 mg HS PO 08/07/20 21:00 08/07/20 23:59 DC 08/07/20 20:03 Risperidone (RisperDAL) 1 mg PRN TID PRN PO AGITATION/DELIRIUM 08/07/20 15:45 Acetaminophen (Tylenol) 650 mg PRN Q6HRS PRN PO MILD PAIN / TEMP > 100.3'F 08/07/20 16:00 UNV Multi-Ingredient Ointment (Analgesic [place]) 1 aneesh PRN QID PRN TP MUSCLE PAIN 08/07/20 16:00 Al Hydroxide/Mg Hydroxide (Mylanta Plus Xs) 15 ml PRN AFTMEALHC PRN PO DYSPEPSIA 08/07/20 16:00 Magnesium Hydroxide (Milk Of Magnesia) 2,400 mg PRN QHS PRN PO 1ST CHOICE CONSTIPATION 08/07/20 16:00 Olanzapine (ZyPREXA ZYDIS) 1.25 mg PRN Q2HRS PRN PO PSYCHOSIS 08/07/20 18:00 08/08/20 20:19 Quetiapine Fumarate (SEROquel) 25 mg 0800,2100 PO 08/08/20 08:00 08/09/20 23:59 DC 08/09/20 20:07 Levothyroxine Sodium (Synthroid) 25 mcg DAILY06 PO 08/08/20 06:00 08/11/20 05:24 I have reviewed the current psychotropics carefully including drug interactions. Risk benefit ratio favors no change other than as noted in my dictated progress note. 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
[2020-08-11] MEDS: FAMOTIDINE 20 MG TABLET PO SCH (10:38)
[2020-08-11] MEDS: amLODIPine BESYLATE 2.5 MG TABLET PO SCH (10:38)
[2020-08-11] MEDS: COLCHICINE 0.6 MG TABLET. PO SCH (10:38)
[2020-08-11] MEDS: risperiDONE 1 MG TABLET. PO SCH (10:39)
[2020-08-11] MEDS: POTASSIUM CHLORIDE 10 MEQ TABLET.ER. PO SCH (10:39)
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
[2020-08-11 16:30] VITALS: BP 108/74
[2020-08-11] MEDS: risperiDONE 2 MG TABLET. PO SCH (19:29)
[2020-08-11] MEDS: MIRTAZAPINE 15 MG TABLET PO SCH (19:30)
[2020-08-11] MEDS: MELATONIN 3 MG TABLET PO SCH (19:30)
--- NOTE | 2020-08-11 22:03 | PDOC ---
Exam Note: Rambo Note: Please also refer to the separate dictated note~for this date of service dictated separately.~Patient seen individually. Discussed the patient with Nursing staff reviewed the chart.~Reviewed interim history and current functioning. Reviewed vital signs,~Labs/ Radiology~and current medications noted below. Continue current treatment with the changes noted in the dictated addendum note Assessment: Vital Signs/I&O: Vital Signs Date Time Temp Pulse Resp B/P (MAP) Pulse Ox O2 Delivery O2 Flow Rate FiO2 08/11/20 16:30 97.1 97 16 108/74 (85) 98 08/09/20 06:33 Room Air I & O 08/10/20 08/10/20 08/11/20 15:00 23:00 07:00 Intake Total 720 ml 380 ml Balance 720 ml 380 ml Current Medications: I have reviewed the current psychotropics carefully including drug interactions. Risk benefit ratio favors no change other than as noted in my dictated progress note. Diagnosis: Problems: (1) Impulse control disorder, unspecified (2) Anxiety disorder, unspecified (3) Dementia, vascular, with depression (4) Dementia, vascular, with delusions (5) Dementia in Alzheimer's disease with depression (6) Dementia in Alzheimer's disease with delusions (7) Major neurocognitive disorder (8) Dementia in Alzheimer's disease with early onset with behavioral disturbance ELLE SALVADOR MD Aug 11, 2020 22:03
[2020-08-12] MEDS: LEVOTHYROXINE 25 MCG TABLET. PO SCH (04:53)
[2020-08-12 06:22] VITALS: BP 135/82
--- NOTE | 2020-08-12 09:00 | PDOC ---
Exam Note: Rambo Note: This note is a late entry for 08/11/2020 covers elements not covered in my initial note. Subjective: The patient was seen individually in the evening of 08/11/2020 with Sarah FRIEDMAN, discussed and reviewed the chart. The patient slept 7-3/4 hours previous night. She was somewhat demanding in the evening. She remains confused, not aggressive. Review of Systems: Ambulation impaired in a wheelchair. No CV, , pulmonary, eye, ENT system symptoms on review. Reliability poor. Mental Status Exam: The patient is oriented to herself. Insight and judgement, recent and remote memory, attention and concentration, fund of knowledge is poor consistent with her diagnoses. Laboratory Data: Reviewed. Impression: Major depressive disorder with psychotic features. Major neurocognitive disorder Alzheimer vascular with delusion, depression, behavioral disturbance. Anxiety disorder unspecified. Impulse control disorder unspecified. Plan: Continue rest of the psychotropics unchanged. Assessment: Vital Signs/I&O: Vital Signs Date Time Temp Pulse Resp B/P (MAP) Pulse Ox O2 Delivery O2 Flow Rate FiO2 08/12/20 06:22 97.8 91 18 135/82 (99) 94 08/09/20 06:33 Room Air I & O 08/11/20 08/11/20 08/12/20 15:00 23:00 07:00 Intake Total 560 ml 320 ml Balance 560 ml 320 ml Current Medications: Meds: Current Medications Medications (Trade) Dose Ordered Sig/Kahlil Route PRN Reason Start Time Stop Time Status Last Admin Dose Admin Amlodipine Besylate (Norvasc) 2.5 mg DAILY PO 08/08/20 09:00 08/11/20 10:38 Colchicine (Colcrys) 0.6 mg DAILY PO 08/08/20 09:00 08/11/20 10:38 Famotidine (Pepcid) 20 mg DAILY08 PO 08/08/20 08:00 08/11/20 10:38 Levothyroxine Sodium (Synthroid) 25 mcg DAILY PO 08/08/20 09:00 08/07/20 19:16 DC Mirtazapine (Remeron) 15 mg HS PO 08/07/20 21:00 08/11/20 19:30 Risperidone (RisperDAL) 1 mg DAILY08 PO 08/08/20 08:00 08/11/20 10:39 Risperidone (RisperDAL) 2 mg HS PO 08/07/20 21:00 08/11/20 19:29 Ciprofloxacin (Cipro) 250 mg BID PO 08/07/20 21:00 08/09/20 21:01 DC 08/09/20 20:05 Melatonin (Melatonin) 9 mg HS PO 08/07/20 21:00 08/11/20 19:30 Potassium Chloride (Klor-Con) 10 meq DAILYWBKFT PO 08/08/20 08:00 08/11/20 10:39 Bisacodyl (Dulcolax Supp) 10 mg PRN DAILY PRN RC 2ND CHOICE CONSTIPATION 08/07/20 15:45 Quetiapine Fumarate (SEROquel) 25 mg 0800,2099 PO 08/07/20 21:00 08/07/20 18:22 DC Quetiapine Fumarate (SEROquel) 50 mg HS PO 08/07/20 21:00 08/07/20 23:59 DC 08/07/20 20:03 Risperidone (RisperDAL) 1 mg PRN TID PRN PO AGITATION/DELIRIUM 08/07/20 15:45 Acetaminophen (Tylenol) 650 mg PRN Q6HRS PRN PO MILD PAIN / TEMP > 100.3'F 08/07/20 16:00 UNV Multi-Ingredient Ointment (Analgesic [place]) 1 aneesh PRN QID PRN TP MUSCLE PAIN 08/07/20 16:00 Al Hydroxide/Mg Hydroxide (Mylanta Plus Xs) 15 ml PRN AFTMEALHC PRN PO DYSPEPSIA 08/07/20 16:00 Magnesium Hydroxide (Milk Of Magnesia) 2,400 mg PRN QHS PRN PO 1ST CHOICE CONSTIPATION 08/07/20 16:00 Olanzapine (ZyPREXA ZYDIS) 1.25 mg PRN Q2HRS PRN PO PSYCHOSIS 08/07/20 18:00 08/11/20 17:44 Quetiapine Fumarate (SEROquel) 25 mg 0800,2099 PO 08/08/20 08:00 08/09/20 23:59 DC 08/09/20 20:07 Levothyroxine Sodium (Synthroid) 25 mcg DAILY06 PO 08/08/20 06:00 08/12/20 04:53 I have reviewed the current psychotropics carefully including drug interactions. Risk benefit ratio favors no change other than as noted in my dictated progress note. Diagnosis: Problems: (1) Major depressive disorder with psychotic features (2) Impulse control disorder, unspecified (3) Anxiety disorder, unspecified (4) Dementia, vascular, with depression (5) Dementia, vascular, with delusions (6) Dementia in Alzheimer's disease with depression (7) Dementia in Alzheimer's disease with delusions (8) Major neurocognitive disorder (9) Dementia in Alzheimer's disease with early onset with behavioral disturbance ELLE SALVADOR MD Aug 12, 2020 09:00
[2020-08-12] MEDS: risperiDONE 1 MG TABLET. PO SCH (10:18)
[2020-08-12] MEDS: FAMOTIDINE 20 MG TABLET PO SCH (10:18)
[2020-08-12] MEDS: POTASSIUM CHLORIDE 10 MEQ TABLET.ER. PO SCH (10:18)
[2020-08-12] MEDS: COLCHICINE 0.6 MG TABLET. PO SCH (10:19)
[2020-08-12] MEDS: amLODIPine BESYLATE 2.5 MG TABLET PO SCH (10:20)
[2020-08-12 16:15] VITALS: BP 103/75
[2020-08-12] MEDS: MELATONIN 3 MG TABLET PO SCH (20:27)
[2020-08-12] MEDS: risperiDONE 2 MG TABLET. PO SCH (20:28)
[2020-08-12] MEDS: MIRTAZAPINE 15 MG TABLET PO SCH (20:28)
--- NOTE | 2020-08-12 22:01 | PDOC ---
Exam Note: Rambo Note: Please also refer to the separate dictated note~for this date of service dictated separately.~Patient seen individually. Discussed the patient with Nursing staff reviewed the chart.~Reviewed interim history and current functioning. Reviewed vital signs,~Labs/ Radiology~and current medications noted below. Continue current treatment with the changes noted in the dictated addendum note Assessment: Vital Signs/I&O: Vital Signs Date Time Temp Pulse Resp B/P (MAP) Pulse Ox O2 Delivery O2 Flow Rate FiO2 08/12/20 16:15 98.9 96 20 103/75 (84) 98 08/09/20 06:33 Room Air I & O 08/11/20 08/11/20 08/12/20 15:00 23:00 07:00 Intake Total 560 ml 320 ml Balance 560 ml 320 ml Current Medications: Meds: Current Medications Medications (Trade) Dose Ordered Sig/Kahlil Route PRN Reason Start Time Stop Time Status Last Admin Dose Admin Amlodipine Besylate (Norvasc) 2.5 mg DAILY PO 08/08/20 09:00 08/12/20 10:20 Colchicine (Colcrys) 0.6 mg DAILY PO 08/08/20 09:00 08/12/20 10:19 Famotidine (Pepcid) 20 mg DAILY08 PO 08/08/20 08:00 08/12/20 10:18 Levothyroxine Sodium (Synthroid) 25 mcg DAILY PO 08/08/20 09:00 08/07/20 19:16 DC Mirtazapine (Remeron) 15 mg HS PO 08/07/20 21:00 08/12/20 20:28 Risperidone (RisperDAL) 1 mg DAILY08 PO 08/08/20 08:00 08/12/20 10:18 Risperidone (RisperDAL) 2 mg HS PO 08/07/20 21:00 08/12/20 20:28 Ciprofloxacin (Cipro) 250 mg BID PO 08/07/20 21:00 08/09/20 21:01 DC 08/09/20 20:05 Melatonin (Melatonin) 9 mg HS PO 08/07/20 21:00 08/12/20 20:27 Potassium Chloride (Klor-Con) 10 meq DAILYWBKFT PO 08/08/20 08:00 08/12/20 10:18 Bisacodyl (Dulcolax Supp) 10 mg PRN DAILY PRN RC 2ND CHOICE CONSTIPATION 08/07/20 15:45 Quetiapine Fumarate (SEROquel) 25 mg 0800,2100 PO 08/07/20 21:00 08/07/20 18:22 DC Quetiapine Fumarate (SEROquel) 50 mg HS PO 08/07/20 21:00 08/07/20 23:59 DC 08/07/20 20:03 Risperidone (RisperDAL) 1 mg PRN TID PRN PO AGITATION/DELIRIUM 08/07/20 15:45 Acetaminophen (Tylenol) 650 mg PRN Q6HRS PRN PO MILD PAIN / TEMP > 100.3'F 08/07/20 16:00 UNV Multi-Ingredient Ointment (Analgesic [place]) 1 aneesh PRN QID PRN TP MUSCLE PAIN 08/07/20 16:00 Al Hydroxide/Mg Hydroxide (Mylanta Plus Xs) 15 ml PRN AFTMEALHC PRN PO DYSPEPSIA 08/07/20 16:00 Magnesium Hydroxide (Milk Of Magnesia) 2,400 mg PRN QHS PRN PO 1ST CHOICE CONSTIPATION 08/07/20 16:00 Olanzapine (ZyPREXA ZYDIS) 1.25 mg PRN Q2HRS PRN PO PSYCHOSIS 08/07/20 18:00 08/11/20 17:44 Quetiapine Fumarate (SEROquel) 25 mg 0800,2100 PO 08/08/20 08:00 08/09/20 23:59 DC 08/09/20 20:07 Levothyroxine Sodium (Synthroid) 25 mcg DAILY06 PO 08/08/20 06:00 08/12/20 04:53 I have reviewed the current psychotropics carefully including drug interactions. Risk benefit ratio favors no change other than as noted in my dictated progress note. Diagnosis: Problems: (1) Impulse control disorder, unspecified (2) Anxiety disorder, unspecified (3) Dementia, vascular, with depression (4) Dementia, vascular, with delusions (5) Dementia in Alzheimer's disease with depression (6) Dementia in Alzheimer's disease with delusions (7) Major neurocognitive disorder (8) Dementia in Alzheimer's disease with early onset with behavioral disturbance (9) Major depressive disorder with psychotic features ELLE SALVADOR MD Aug 12, 2020 22:01
[2020-08-13 05:52] VITALS: BP 124/79
[2020-08-13] MEDS: LEVOTHYROXINE 25 MCG TABLET. PO SCH (06:00)
[2020-08-13 06:47] LABS: BASO % 0 % (0-3); EOS % 0 % (0-3); HEMOGLOBIN 9.6 g/dL (12.0-15.5); LYMPH # 1.4 x10^3/uL (1.0-4.8); LYMPH % 28 % (24-48); MEAN CORPUSCULAR HEMOGLOBIN 28 pg (25-35); MEAN CORPUSCULAR HGB CONC 32 g/dL (31-37); MEAN CORPUSCULAR VOLUME 88 fL (79-100); MONO % 19 % (0-9); NEUT # 2.7 x10^3uL (1.8-7.7); NEUT % 53 % (31-73); PLATELET COUNT 324 x10^3/uL (140-400); RED BLOOD COUNT 3.42 x10^6/uL (3.50-5.40); RED CELL DISTRIBUTION WIDTH 14.6 % (11.5-14.5); WHITE BLOOD COUNT 5.1 x10^3/uL (4.0-11.0)
[2020-08-13 06:59] LABS: ALBUMIN 2.3 g/dL (3.4-5.0); ALBUMIN/GLOBULIN RATIO 0.7 (1.0-1.7); CALCIUM 8.2 mg/dL (8.5-10.1); CREATININE 0.8 mg/dL (0.6-1.0); GFR 67.5; POTASSIUM 3.5 mmol/L (3.5-5.1); TOTAL BILIRUBIN 0.2 mg/dL (0.2-1.0); TOTAL PROTEIN 5.7 g/dL (6.4-8.2)
[2020-08-13] MEDS: risperiDONE 1 MG TABLET. PO SCH (08:00)
[2020-08-13] MEDS: COLCHICINE 0.6 MG TABLET. PO SCH (09:02)
[2020-08-13] MEDS: POTASSIUM CHLORIDE 10 MEQ TABLET.ER. PO SCH (09:03)
[2020-08-13] MEDS: amLODIPine BESYLATE 2.5 MG TABLET PO SCH (09:03)
[2020-08-13] MEDS: FAMOTIDINE 20 MG TABLET PO SCH (09:03)
[2020-08-13 15:42] VITALS: BP 111/74
[2020-08-13] MEDS: MELATONIN 3 MG TABLET PO SCH (19:40)
[2020-08-13] MEDS: risperiDONE 2 MG TABLET. PO SCH (19:41)
[2020-08-13] MEDS: MIRTAZAPINE 15 MG TABLET PO SCH (19:41)
--- NOTE | 2020-08-13 22:13 | PDOC ---
Exam Note: Rambo Note: This note is a late entry for 08/12/2020 covers elements not covered in my initial note. Subjective: The patient was seen individually in the evening of 08/12/2020 with Sarah FRIEDMAN, discussed and reviewed the chart. The patient slept 6-1/2 hours previous night. She did have a telephone conversation with her daughter. She remains confused, not aggressive. Review of Systems: Ambulation impaired in wheelchair. No CV, , pulmonary, eye, ENT system symptoms on review. Mental Status Exam: The patient is oriented to herself. Insight and judgement, recent and remote memory, attention and concentration, fund of knowledge is poor consistent with her diagnoses. Laboratory Data: Reviewed. Impression: Major depressive disorder with psychotic features. Major neurocognitive disorder Alzheimer vascular with delusion, depression, behavioral disturbance. Anxiety disorder unspecified. Impulse control disorder unspecified. Plan: Continue rest of the psychotropics unchanged. Assessment: Vital Signs/I&O: Vital Signs Date Time Temp Pulse Resp B/P (MAP) Pulse Ox O2 Delivery O2 Flow Rate FiO2 08/13/20 15:42 98.4 103 16 111/74 (86) 94 08/09/20 06:33 Room Air I & O 08/12/20 08/12/20 08/13/20 15:00 23:00 07:00 Intake Total 720 ml 220 ml Balance 720 ml 220 ml Labs: Laboratory Tests Test 08/13/20 06:30 White Blood Count 5.1 x10^3/uL (4.0-11.0) Red Blood Count 3.42 x10^6/uL (3.50-5.40) L Hemoglobin 9.6 g/dL (12.0-15.5) L Hematocrit 30.0 % (36.0-47.0) L Mean Corpuscular Volume 88 fL (79-100) Mean Corpuscular Hemoglobin 28 pg (25-35) Mean Corpuscular Hemoglobin Concent 32 g/dL (31-37) Red Cell Distribution Width 14.6 % (11.5-14.5) H Platelet Count 324 x10^3/uL (140-400) Neutrophils (%) (Auto) 53 % (31-73) Lymphocytes (%) (Auto) 28 % (24-48) Monocytes (%) (Auto) 19 % (0-9) H Eosinophils (%) (Auto) 0 % (0-3) Basophils (%) (Auto) 0 % (0-3) Neutrophils # (Auto) 2.7 x10^3uL (1.8-7.7) Lymphocytes # (Auto) 1.4 x10^3/uL (1.0-4.8) Monocytes # (Auto) 1.0 x10^3/uL (0.0-1.1) Eosinophils # (Auto) 0.0 x10^3/uL (0.0-0.7) Basophils # (Auto) 0.0 x10^3/uL (0.0-0.2) Sodium Level 147 mmol/L (136-145) H Potassium Level 3.5 mmol/L (3.5-5.1) Chloride Level 112 mmol/L (98-107) H Carbon Dioxide Level 28 mmol/L (21-32) Anion Gap 7 (6-14) Blood Urea Nitrogen 18 mg/dL (7-20) Creatinine 0.8 mg/dL (0.6-1.0) Estimated GFR (Cockcroft-Gault) 67.5 BUN/Creatinine Ratio 23 (6-20) H Glucose Level 89 mg/dL (70-99) Calcium Level 8.2 mg/dL (8.5-10.1) L Total Bilirubin 0.2 mg/dL (0.2-1.0) Aspartate Amino Transferase (AST) 16 U/L (15-37) Alanine Aminotransferase (ALT) 17 U/L (14-59) Alkaline Phosphatase 105 U/L (46-116) Total Protein 5.7 g/dL (6.4-8.2) L Albumin 2.3 g/dL (3.4-5.0) L Albumin/Globulin Ratio 0.7 (1.0-1.7) L Current Medications: Meds: Laboratory Tests Test 08/13/20 06:30 White Blood Count 5.1 x10^3/uL Red Blood Count 3.42 x10^6/uL Hemoglobin 9.6 g/dL Hematocrit 30.0 % Mean Corpuscular Volume 88 fL Mean Corpuscular Hemoglobin 28 pg Mean Corpuscular Hemoglobin Concent 32 g/dL Red Cell Distribution Width 14.6 % Platelet Count 324 x10^3/uL Neutrophils (%) (Auto) 53 % Lymphocytes (%) (Auto) 28 % Monocytes (%) (Auto) 19 % Eosinophils (%) (Auto) 0 % Basophils (%) (Auto) 0 % Neutrophils # (Auto) 2.7 x10^3uL Lymphocytes # (Auto) 1.4 x10^3/uL Monocytes # (Auto) 1.0 x10^3/uL Eosinophils # (Auto) 0.0 x10^3/uL Basophils # (Auto) 0.0 x10^3/uL Sodium Level 147 mmol/L Potassium Level 3.5 mmol/L Chloride Level 112 mmol/L Carbon Dioxide Level 28 mmol/L Anion Gap 7 Blood Urea Nitrogen 18 mg/dL Creatinine 0.8 mg/dL Estimated GFR (Cockcroft-Gault) 67.5 BUN/Creatinine Ratio 23 Glucose Level 89 mg/dL Calcium Level 8.2 mg/dL Total Bilirubin 0.2 mg/dL Aspartate Amino Transf (AST/SGOT) 16 U/L Alanine Aminotransferase (ALT/SGPT) 17 U/L Alkaline Phosphatase 105 U/L Total Protein 5.7 g/dL Albumin 2.3 g/dL Albumin/Globulin Ratio 0.7 Current Medications Medications (Trade) Dose Ordered Sig/Kahlil Route PRN Reason Start Time Stop Time Status Last Admin Dose Admin Amlodipine Besylate (Norvasc) 2.5 mg DAILY PO 08/08/20 09:00 08/13/20 09:03 Colchicine (Colcrys) 0.6 mg DAILY PO 08/08/20 09:00 08/13/20 09:02 Famotidine (Pepcid) 20 mg DAILY08 PO 08/08/20 08:00 08/13/20 09:03 Levothyroxine Sodium (Synthroid) 25 mcg DAILY PO 08/08/20 09:00 08/07/20 19:16 DC Mirtazapine (Remeron) 15 mg HS PO 08/07/20 21:00 08/13/20 19:41 Risperidone (RisperDAL) 1 mg DAILY08 PO 08/08/20 08:00 08/13/20 08:00 Risperidone (RisperDAL) 2 mg HS PO 08/07/20 21:00 08/13/20 19:41 Ciprofloxacin (Cipro) 250 mg BID PO 08/07/20 21:00 08/09/20 21:01 DC 08/09/20 20:05 Melatonin (Melatonin) 9 mg HS PO 08/07/20 21:00 08/13/20 19:40 Potassium Chloride (Klor-Con) 10 meq DAILYWBKFT PO 08/08/20 08:00 08/13/20 09:03 Bisacodyl (Dulcolax Supp) 10 mg PRN DAILY PRN RC 2ND CHOICE CONSTIPATION 08/07/20 15:45 Quetiapine Fumarate (SEROquel) 25 mg 0800,2099 PO 08/07/20 21:00 08/07/20 18:22 DC Quetiapine Fumarate (SEROquel) 50 mg HS PO 08/07/20 21:00 08/07/20 23:59 DC 08/07/20 20:03 Risperidone (RisperDAL) 1 mg PRN TID PRN PO AGITATION/DELIRIUM 08/07/20 15:45 Acetaminophen (Tylenol) 650 mg PRN Q6HRS PRN PO MILD PAIN / TEMP > 100.3'F 08/07/20 16:00 UNV Multi-Ingredient Ointment (Analgesic [place]) 1 aneesh PRN QID PRN TP MUSCLE PAIN 08/07/20 16:00 Al Hydroxide/Mg Hydroxide (Mylanta Plus Xs) 15 ml PRN AFTMEALHC PRN PO DYSPEPSIA 08/07/20 16:00 Magnesium Hydroxide (Milk Of Magnesia) 2,400 mg PRN QHS PRN PO 1ST CHOICE CONSTIPATION 08/07/20 16:00 Olanzapine (ZyPREXA ZYDIS) 1.25 mg PRN Q2HRS PRN PO PSYCHOSIS 08/07/20 18:00 08/11/20 17:44 Quetiapine Fumarate (SEROquel) 25 mg 0800,2099 PO 08/08/20 08:00 08/09/20 23:59 DC 08/09/20 20:07 Levothyroxine Sodium (Synthroid) 25 mcg DAILY06 PO 08/08/20 06:00 08/13/20 06:00 I have reviewed the current psychotropics carefully including drug interactions. Risk benefit ratio favors no change other than as noted in my dictated progress note. 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
--- NOTE | 2020-08-13 22:14 | PDOC ---
Exam Note: Rambo Note: Please also refer to the separate dictated note~for this date of service dictated separately.~Patient seen individually. Discussed the patient with Nursing staff reviewed the chart.~Reviewed interim history and current functioning. Reviewed vital signs,~Labs/ Radiology~and current medications noted below. Continue current treatment with the changes noted in the dictated addendum note Assessment: Vital Signs/I&O: Vital Signs Date Time Temp Pulse Resp B/P (MAP) Pulse Ox O2 Delivery O2 Flow Rate FiO2 08/13/20 15:42 98.4 103 16 111/74 (86) 94 08/09/20 06:33 Room Air I & O 08/12/20 08/12/20 08/13/20 15:00 23:00 07:00 Intake Total 720 ml 220 ml Balance 720 ml 220 ml Labs: Laboratory Tests Test 08/13/20 06:30 White Blood Count 5.1 x10^3/uL (4.0-11.0) Red Blood Count 3.42 x10^6/uL (3.50-5.40) L Hemoglobin 9.6 g/dL (12.0-15.5) L Hematocrit 30.0 % (36.0-47.0) L Mean Corpuscular Volume 88 fL (79-100) Mean Corpuscular Hemoglobin 28 pg (25-35) Mean Corpuscular Hemoglobin Concent 32 g/dL (31-37) Red Cell Distribution Width 14.6 % (11.5-14.5) H Platelet Count 324 x10^3/uL (140-400) Neutrophils (%) (Auto) 53 % (31-73) Lymphocytes (%) (Auto) 28 % (24-48) Monocytes (%) (Auto) 19 % (0-9) H Eosinophils (%) (Auto) 0 % (0-3) Basophils (%) (Auto) 0 % (0-3) Neutrophils # (Auto) 2.7 x10^3uL (1.8-7.7) Lymphocytes # (Auto) 1.4 x10^3/uL (1.0-4.8) Monocytes # (Auto) 1.0 x10^3/uL (0.0-1.1) Eosinophils # (Auto) 0.0 x10^3/uL (0.0-0.7) Basophils # (Auto) 0.0 x10^3/uL (0.0-0.2) Sodium Level 147 mmol/L (136-145) H Potassium Level 3.5 mmol/L (3.5-5.1) Chloride Level 112 mmol/L (98-107) H Carbon Dioxide Level 28 mmol/L (21-32) Anion Gap 7 (6-14) Blood Urea Nitrogen 18 mg/dL (7-20) Creatinine 0.8 mg/dL (0.6-1.0) Estimated GFR (Cockcroft-Gault) 67.5 BUN/Creatinine Ratio 23 (6-20) H Glucose Level 89 mg/dL (70-99) Calcium Level 8.2 mg/dL (8.5-10.1) L Total Bilirubin 0.2 mg/dL (0.2-1.0) Aspartate Amino Transferase (AST) 16 U/L (15-37) Alanine Aminotransferase (ALT) 17 U/L (14-59) Alkaline Phosphatase 105 U/L (46-116) Total Protein 5.7 g/dL (6.4-8.2) L Albumin 2.3 g/dL (3.4-5.0) L Albumin/Globulin Ratio 0.7 (1.0-1.7) L Current Medications: Meds: Laboratory Tests Test 08/13/20 06:30 White Blood Count 5.1 x10^3/uL Red Blood Count 3.42 x10^6/uL Hemoglobin 9.6 g/dL Hematocrit 30.0 % Mean Corpuscular Volume 88 fL Mean Corpuscular Hemoglobin 28 pg Mean Corpuscular Hemoglobin Concent 32 g/dL Red Cell Distribution Width 14.6 % Platelet Count 324 x10^3/uL Neutrophils (%) (Auto) 53 % Lymphocytes (%) (Auto) 28 % Monocytes (%) (Auto) 19 % Eosinophils (%) (Auto) 0 % Basophils (%) (Auto) 0 % Neutrophils # (Auto) 2.7 x10^3uL Lymphocytes # (Auto) 1.4 x10^3/uL Monocytes # (Auto) 1.0 x10^3/uL Eosinophils # (Auto) 0.0 x10^3/uL Basophils # (Auto) 0.0 x10^3/uL Sodium Level 147 mmol/L Potassium Level 3.5 mmol/L Chloride Level 112 mmol/L Carbon Dioxide Level 28 mmol/L Anion Gap 7 Blood Urea Nitrogen 18 mg/dL Creatinine 0.8 mg/dL Estimated GFR (Cockcroft-Gault) 67.5 BUN/Creatinine Ratio 23 Glucose Level 89 mg/dL Calcium Level 8.2 mg/dL Total Bilirubin 0.2 mg/dL Aspartate Amino Transf (AST/SGOT) 16 U/L Alanine Aminotransferase (ALT/SGPT) 17 U/L Alkaline Phosphatase 105 U/L Total Protein 5.7 g/dL Albumin 2.3 g/dL Albumin/Globulin Ratio 0.7 Current Medications Medications (Trade) Dose Ordered Sig/Kahlil Route PRN Reason Start Time Stop Time Status Last Admin Dose Admin Amlodipine Besylate (Norvasc) 2.5 mg DAILY PO 08/08/20 09:00 08/13/20 09:03 Colchicine (Colcrys) 0.6 mg DAILY PO 08/08/20 09:00 08/13/20 09:02 Famotidine (Pepcid) 20 mg DAILY08 PO 08/08/20 08:00 08/13/20 09:03 Levothyroxine Sodium (Synthroid) 25 mcg DAILY PO 08/08/20 09:00 08/07/20 19:16 DC Mirtazapine (Remeron) 15 mg HS PO 08/07/20 21:00 08/13/20 19:41 Risperidone (RisperDAL) 1 mg DAILY08 PO 08/08/20 08:00 08/13/20 08:00 Risperidone (RisperDAL) 2 mg HS PO 08/07/20 21:00 08/13/20 19:41 Ciprofloxacin (Cipro) 250 mg BID PO 08/07/20 21:00 08/09/20 21:01 DC 08/09/20 20:05 Melatonin (Melatonin) 9 mg HS PO 08/07/20 21:00 08/13/20 19:40 Potassium Chloride (Klor-Con) 10 meq DAILYWBKFT PO 08/08/20 08:00 08/13/20 09:03 Bisacodyl (Dulcolax Supp) 10 mg PRN DAILY PRN RC 2ND CHOICE CONSTIPATION 08/07/20 15:45 Quetiapine Fumarate (SEROquel) 25 mg 0800,2100 PO 08/07/20 21:00 08/07/20 18:22 DC Quetiapine Fumarate (SEROquel) 50 mg HS PO 08/07/20 21:00 08/07/20 23:59 DC 08/07/20 20:03 Risperidone (RisperDAL) 1 mg PRN TID PRN PO AGITATION/DELIRIUM 08/07/20 15:45 Acetaminophen (Tylenol) 650 mg PRN Q6HRS PRN PO MILD PAIN / TEMP > 100.3'F 08/07/20 16:00 UNV Multi-Ingredient Ointment (Analgesic [place]) 1 aneesh PRN QID PRN TP MUSCLE PAIN 08/07/20 16:00 Al Hydroxide/Mg Hydroxide (Mylanta Plus Xs) 15 ml PRN AFTMEALHC PRN PO DYSPEPSIA 08/07/20 16:00 Magnesium Hydroxide (Milk Of Magnesia) 2,400 mg PRN QHS PRN PO 1ST CHOICE CONSTIPATION 08/07/20 16:00 Olanzapine (ZyPREXA ZYDIS) 1.25 mg PRN Q2HRS PRN PO PSYCHOSIS 08/07/20 18:00 08/11/20 17:44 Quetiapine Fumarate (SEROquel) 25 mg 0800,2100 PO 08/08/20 08:00 08/09/20 23:59 DC 08/09/20 20:07 Levothyroxine Sodium (Synthroid) 25 mcg DAILY06 PO 08/08/20 06:00 08/13/20 06:00 I have reviewed the current psychotropics carefully including drug interactions. Risk benefit ratio favors no change other than as noted in my dictated progress note. 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
[2020-08-14] MEDS: LEVOTHYROXINE 25 MCG TABLET. PO SCH (06:00)
[2020-08-14 06:11] VITALS: BP 136/83
[2020-08-14] MEDS: risperiDONE 1 MG TABLET. PO SCH (08:13)
[2020-08-14] MEDS: amLODIPine BESYLATE 2.5 MG TABLET PO SCH (08:13)
[2020-08-14] MEDS: COLCHICINE 0.6 MG TABLET. PO SCH (08:13)
[2020-08-14] MEDS: POTASSIUM CHLORIDE 10 MEQ TABLET.ER. PO SCH (08:14)
[2020-08-14] MEDS: FAMOTIDINE 20 MG TABLET PO SCH (08:14)
--- NOTE | 2020-08-14 09:17 | PDOC ---
Exam Note: Rambo Note: This note is a late entry for 08/13/2020 covers elements not covered in my initial note. Subjective: The patient was seen individually in the evening of 08/13/2020 with Sarah FRIEDMAN, discussed and reviewed the chart. The patient slept 6-1/4 hours previous night. She had been on the telephone with her daughter and seems to recognize the daughter over the phone. Review of Systems: Ambulation impaired in wheelchair. No CV, , pulmonary, e ye, ENT system symptoms on review. Reliability poor. Mental Status Exam: The patient is oriented to herself. Insight and judgement, recent and remote memory, attention and concentration, fund of knowledge is poor consistent with her diagnoses. Laboratory Data: Reviewed. Impression: Major depressive disorder with psychotic features. Major neurocognitive disorder Alzheimer vascular with delusion, depression, behavioral disturbance. Anxiety disorder unspecified. Impulse control disorder unspecified. Plan: Continue rest of the psychotropics unchanged. Assessment: Vital Signs/I&O: Vital Signs Date Time Temp Pulse Resp B/P (MAP) Pulse Ox O2 Delivery O2 Flow Rate FiO2 08/14/20 08:13 87 136/83 08/14/20 06:11 98.5 16 94 Room Air I & O 08/13/20 08/13/20 08/14/20 15:00 23:00 07:00 Intake Total 600 ml 460 ml Balance 600 ml 460 ml Current Medications: Meds: Current Medications Medications (Trade) Dose Ordered Sig/Kahlil Route PRN Reason Start Time Stop Time Status Last Admin Dose Admin Amlodipine Besylate (Norvasc) 2.5 mg DAILY PO 08/08/20 09:00 08/14/20 08:13 Colchicine (Colcrys) 0.6 mg DAILY PO 08/08/20 09:00 08/14/20 08:13 Famotidine (Pepcid) 20 mg DAILY08 PO 08/08/20 08:00 08/14/20 08:14 Levothyroxine Sodium (Synthroid) 25 mcg DAILY PO 08/08/20 09:00 08/07/20 19:16 DC Mirtazapine (Remeron) 15 mg HS PO 08/07/20 21:00 08/13/20 19:41 Risperidone (RisperDAL) 1 mg DAILY08 PO 08/08/20 08:00 08/14/20 08:13 Risperidone (RisperDAL) 2 mg HS PO 08/07/20 21:00 08/13/20 19:41 Ciprofloxacin (Cipro) 250 mg BID PO 08/07/20 21:00 08/09/20 21:01 DC 08/09/20 20:05 Melatonin (Melatonin) 9 mg HS PO 08/07/20 21:00 08/13/20 19:40 Potassium Chloride (Klor-Con) 10 meq DAILYWBKFT PO 08/08/20 08:00 08/14/20 08:14 Bisacodyl (Dulcolax Supp) 10 mg PRN DAILY PRN RC 2ND CHOICE CONSTIPATION 08/07/20 15:45 Quetiapine Fumarate (SEROquel) 25 mg 0800,2099 PO 08/07/20 21:00 08/07/20 18:22 DC Quetiapine Fumarate (SEROquel) 50 mg HS PO 08/07/20 21:00 08/07/20 23:59 DC 08/07/20 20:03 Risperidone (RisperDAL) 1 mg PRN TID PRN PO AGITATION/DELIRIUM 08/07/20 15:45 Acetaminophen (Tylenol) 650 mg PRN Q6HRS PRN PO MILD PAIN / TEMP > 100.3'F 08/07/20 16:00 UNV Multi-Ingredient Ointment (Analgesic [place]) 1 aneesh PRN QID PRN TP MUSCLE PAIN 08/07/20 16:00 Al Hydroxide/Mg Hydroxide (Mylanta Plus Xs) 15 ml PRN AFTMEALHC PRN PO DYSPEPSIA 08/07/20 16:00 Magnesium Hydroxide (Milk Of Magnesia) 2,400 mg PRN QHS PRN PO 1ST CHOICE CONSTIPATION 08/07/20 16:00 Olanzapine (ZyPREXA ZYDIS) 1.25 mg PRN Q2HRS PRN PO PSYCHOSIS 08/07/20 18:00 08/11/20 17:44 Quetiapine Fumarate (SEROquel) 25 mg 0800,2099 PO 08/08/20 08:00 08/09/20 23:59 DC 08/09/20 20:07 Levothyroxine Sodium (Synthroid) 25 mcg DAILY06 PO 08/08/20 06:00 08/14/20 06:00 I have reviewed the current psychotropics carefully including drug interactions. Risk benefit ratio favors no change other than as noted in my dictated progress note. 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
[2020-08-14 16:01] VITALS: BP 109/76
[2020-08-14] MEDS: risperiDONE 2 MG TABLET. PO SCH (20:36)
[2020-08-14] MEDS: MELATONIN 3 MG TABLET PO SCH (20:36)
[2020-08-14] MEDS: MIRTAZAPINE 15 MG TABLET PO SCH (20:37)
--- NOTE | 2020-08-14 21:44 | PDOC ---
Exam Note: Rambo Note: Please also refer to the separate dictated note~for this date of service dictated separately.~Patient seen individually. Discussed the patient with Nursing staff reviewed the chart.~Reviewed interim history and current functioning. Reviewed vital signs,~Labs/ Radiology~and current medications noted below. Continue current treatment with the changes noted in the dictated addendum note Assessment: Vital Signs/I&O: Vital Signs Date Time Temp Pulse Resp B/P (MAP) Pulse Ox O2 Delivery O2 Flow Rate FiO2 08/14/20 16:01 98.8 99 18 109/76 (87) 97 Room Air I & O 08/13/20 08/13/20 08/14/20 15:00 23:00 07:00 Intake Total 600 ml 460 ml Balance 600 ml 460 ml Current Medications: Meds: Current Medications Medications (Trade) Dose Ordered Sig/Kahlil Route PRN Reason Start Time Stop Time Status Last Admin Dose Admin Amlodipine Besylate (Norvasc) 2.5 mg DAILY PO 08/08/20 09:00 08/14/20 08:13 Colchicine (Colcrys) 0.6 mg DAILY PO 08/08/20 09:00 08/14/20 08:13 Famotidine (Pepcid) 20 mg DAILY08 PO 08/08/20 08:00 08/14/20 08:14 Levothyroxine Sodium (Synthroid) 25 mcg DAILY PO 08/08/20 09:00 08/07/20 19:16 DC Mirtazapine (Remeron) 15 mg HS PO 08/07/20 21:00 08/14/20 20:37 Risperidone (RisperDAL) 1 mg DAILY08 PO 08/08/20 08:00 08/14/20 08:13 Risperidone (RisperDAL) 2 mg HS PO 08/07/20 21:00 08/14/20 20:36 Ciprofloxacin (Cipro) 250 mg BID PO 08/07/20 21:00 08/09/20 21:01 DC 08/09/20 20:05 Melatonin (Melatonin) 9 mg HS PO 08/07/20 21:00 08/14/20 20:36 Potassium Chloride (Klor-Con) 10 meq DAILYWBKFT PO 08/08/20 08:00 08/14/20 08:14 Bisacodyl (Dulcolax Supp) 10 mg PRN DAILY PRN RC 2ND CHOICE CONSTIPATION 08/07/20 15:45 Quetiapine Fumarate (SEROquel) 25 mg 0800,2100 PO 08/07/20 21:00 08/07/20 18:22 DC Quetiapine Fumarate (SEROquel) 50 mg HS PO 08/07/20 21:00 08/07/20 23:59 DC 08/07/20 20:03 Risperidone (RisperDAL) 1 mg PRN TID PRN PO AGITATION/DELIRIUM 08/07/20 15:45 Acetaminophen (Tylenol) 650 mg PRN Q6HRS PRN PO MILD PAIN / TEMP > 100.3'F 08/07/20 16:00 UNV Multi-Ingredient Ointment (Analgesic [place]) 1 aneesh PRN QID PRN TP MUSCLE PAIN 08/07/20 16:00 Al Hydroxide/Mg Hydroxide (Mylanta Plus Xs) 15 ml PRN AFTMEALHC PRN PO DYSPEPSIA 08/07/20 16:00 Magnesium Hydroxide (Milk Of Magnesia) 2,400 mg PRN QHS PRN PO 1ST CHOICE CONSTIPATION 08/07/20 16:00 Olanzapine (ZyPREXA ZYDIS) 1.25 mg PRN Q2HRS PRN PO PSYCHOSIS 08/07/20 18:00 08/11/20 17:44 Quetiapine Fumarate (SEROquel) 25 mg 0800,2100 PO 08/08/20 08:00 08/09/20 23:59 DC 08/09/20 20:07 Levothyroxine Sodium (Synthroid) 25 mcg DAILY06 PO 08/08/20 06:00 08/14/20 06:00 I have reviewed the current psychotropics carefully including drug interactions. Risk benefit ratio favors no change other than as noted in my dictated progress note. 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
[2020-08-15] MEDS: LEVOTHYROXINE 25 MCG TABLET. PO SCH (05:22)
[2020-08-15 07:06] VITALS: BP 126/84
[2020-08-15] MEDS: COLCHICINE 0.6 MG TABLET. PO SCH (08:39)
[2020-08-15] MEDS: POTASSIUM CHLORIDE 10 MEQ TABLET.ER. PO SCH (08:39)
[2020-08-15] MEDS: FAMOTIDINE 20 MG TABLET PO SCH (08:39)
[2020-08-15] MEDS: amLODIPine BESYLATE 2.5 MG TABLET PO SCH (08:44)
[2020-08-15] MEDS: risperiDONE 1 MG TABLET. PO SCH (08:44)
--- NOTE | 2020-08-15 08:47 | PDOC ---
Exam Note: Rambo Note: This note is a late entry for 08/14/2020 covers elements not covered in my initial note. Subjective: The patient was seen individually in the evening of 08/14/2020 with Uli FRIEDMAN, discussed and reviewed the chart. The patient slept 7-1/2 hours previous night. Overall the patient has not been agitated, disruptive, still somewhat psychotic, certainly confused. Review of Systems: Ambulation impaired in wheelchair. No CV, , pulmonary, eye, ENT system symptoms on review. Reliability poor. Mental Status Exam: The patient is oriented to herself. Insight and judgement, recent and remote memory, attention and concentration, fund of knowledge is poor consistent with her diagnoses. Laboratory Data: Reviewed. Impression: Major depressive disorder with psychotic features. Major neurocognitive disorder Alzheimer vascular with delusion, depression, behavioral disturbance. Anxiety disorder unspecified. Impulse control disorder unspecif ied. Plan: Continue rest of the psychotropics unchanged. Dr. Lepe will be covering for me from Monday through August 29, 2020. Assessment: Vital Signs/I&O: Vital Signs Date Time Temp Pulse Resp B/P (MAP) Pulse Ox O2 Delivery O2 Flow Rate FiO2 08/15/20 08:44 91 126/84 08/15/20 07:06 97.6 20 96 Room Air I & O 08/14/20 08/14/20 08/15/20 15:00 23:00 07:00 Intake Total 600 ml 480 ml Balance 600 ml 480 ml Current Medications: Meds: Current Medications Medications (Trade) Dose Ordered Sig/Kahlil Route PRN Reason Start Time Stop Time Status Last Admin Dose Admin Amlodipine Besylate (Norvasc) 2.5 mg DAILY PO 08/08/20 09:00 08/15/20 08:44 Colchicine (Colcrys) 0.6 mg DAILY PO 08/08/20 09:00 08/15/20 08:39 Famotidine (Pepcid) 20 mg DAILY08 PO 08/08/20 08:00 08/15/20 08:39 Levothyroxine Sodium (Synthroid) 25 mcg DAILY PO 08/08/20 09:00 08/07/20 19:16 DC Mirtazapine (Remeron) 15 mg HS PO 08/07/20 21:00 08/14/20 20:37 Risperidone (RisperDAL) 1 mg DAILY08 PO 08/08/20 08:00 08/15/20 08:44 Risperidone (RisperDAL) 2 mg HS PO 08/07/20 21:00 08/14/20 20:36 Ciprofloxacin (Cipro) 250 mg BID PO 08/07/20 21:00 08/09/20 21:01 DC 08/09/20 20:05 Melatonin (Melatonin) 9 mg HS PO 08/07/20 21:00 08/14/20 20:36 Potassium Chloride (Klor-Con) 10 meq DAILYWBKFT PO 08/08/20 08:00 08/15/20 08:39 Bisacodyl (Dulcolax Supp) 10 mg PRN DAILY PRN RC 2ND CHOICE CONSTIPATION 08/07/20 15:45 Quetiapine Fumarate (SEROquel) 25 mg 0800,2099 PO 08/07/20 21:00 08/07/20 18:22 DC Quetiapine Fumarate (SEROquel) 50 mg HS PO 08/07/20 21:00 08/07/20 23:59 DC 08/07/20 20:03 Risperidone (RisperDAL) 1 mg PRN TID PRN PO AGITATION/DELIRIUM 08/07/20 15:45 Acetaminophen (Tylenol) 650 mg PRN Q6HRS PRN PO MILD PAIN / TEMP > 100.3'F 08/07/20 16:00 UNV Multi-Ingredient Ointment (Analgesic [place]) 1 aneesh PRN QID PRN TP MUSCLE PAIN 08/07/20 16:00 Al Hydroxide/Mg Hydroxide (Mylanta Plus Xs) 15 ml PRN AFTMEALHC PRN PO DYSPEPSIA 08/07/20 16:00 Magnesium Hydroxide (Milk Of Magnesia) 2,400 mg PRN QHS PRN PO 1ST CHOICE CONSTIPATION 08/07/20 16:00 Olanzapine (ZyPREXA ZYDIS) 1.25 mg PRN Q2HRS PRN PO PSYCHOSIS 08/07/20 18:00 08/11/20 17:44 Quetiapine Fumarate (SEROquel) 25 mg 0800,2099 PO 08/08/20 08:00 08/09/20 23:59 DC 08/09/20 20:07 Levothyroxine Sodium (Synthroid) 25 mcg DAILY06 PO 08/08/20 06:00 08/15/20 05:22 I have reviewed the current psychotropics carefully including drug interactions. Risk benefit ratio favors no change other than as noted in my dictated progress note. 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
[2020-08-15] MEDS: NYSTATIN 100,000 UNITS/ML ORAL SUSPENSION 60ML BOTTLE. SWSW SCH ×3 (13:00→21:00)
[2020-08-15 16:56] VITALS: BP 95/62
[2020-08-15] MEDS: risperiDONE 2 MG TABLET. PO SCH (19:58)
[2020-08-15] MEDS: MIRTAZAPINE 15 MG TABLET PO SCH (19:58)
[2020-08-15] MEDS: MELATONIN 3 MG TABLET PO SCH (19:59)
[2020-08-15] MEDS: traMADol 50 MG TABLET PO PRN (19:59)
--- NOTE | 2020-08-15 21:40 | PN ---
DATE: 08/15/2020 SUBJECTIVE: The patient was seen today, met with the staff, chart reviewed. The patient continues to be withdrawn, confused, unsteady on her feet. Currently on wheelchair. The patient is being closely watched almost 1:1 because of risk for falls and she is also restless. She has difficulty following directions. OBSERVATION: VITAL SIGNS: Temperature 97.6, blood pressure 126/84, pulse 91, respirations 20, O2 saturations 100%. CURRENT MEDICATIONS: Reviewed include Risperdal 1 mg daily, melatonin 9 mg at night, Risperdal 2 mg at night, mirtazapine 15 mg at night, also Risperdal 1 mg 3 times a day p.r.n. The patient's lab reviewed. The patient is not exhibiting any side effects to the medications. ASSESSMENT: Major neurocognitive disorder, most likely Alzheimer's, vascular with delusions, depression, and behavioral disturbances. Also, impulse control problems. PLAN: To continue with the current treatment plan. LENGTH OF STAY: 7 days. LE VALENTINE MD DR: ARNOLD/carol JOB#: [id number] / [id number] MARILOU
[2020-08-16] MEDS: LEVOTHYROXINE 25 MCG TABLET. PO SCH (05:30)
[2020-08-16 06:08] VITALS: BP 132/86
[2020-08-16] MEDS: FAMOTIDINE 20 MG TABLET PO SCH (08:17)
[2020-08-16] MEDS: risperiDONE 1 MG TABLET. PO SCH (08:17)
[2020-08-16] MEDS: amLODIPine BESYLATE 2.5 MG TABLET PO SCH (08:17)
[2020-08-16] MEDS: COLCHICINE 0.6 MG TABLET. PO SCH (08:19)
[2020-08-16] MEDS: POTASSIUM CHLORIDE 10 MEQ TABLET.ER. PO SCH (08:19)
[2020-08-16] MEDS: NYSTATIN 100,000 UNITS/ML ORAL SUSPENSION 60ML BOTTLE. SWSW SCH ×4 (09:00→20:02)
[2020-08-16 16:30] VITALS: BP 111/75
[2020-08-16] MEDS: MELATONIN 3 MG TABLET PO SCH (20:00)
[2020-08-16] MEDS: traMADol 50 MG TABLET PO PRN (20:01)
[2020-08-16] MEDS: risperiDONE 2 MG TABLET. PO SCH (20:02)
[2020-08-16] MEDS: MIRTAZAPINE 15 MG TABLET PO SCH (20:02)
--- NOTE | 2020-08-16 20:39 | PN ---
DATE: 08/16/2020 SUBJECTIVE: The patient was seen today, met with the staff, chart reviewed, and covering for Dr. Cates. Staff reports no psychotic behaviors, has shown some improvement and the patient did not have any falls recently. OBSERVATION: VITAL SIGNS: Temperature 97.8, blood pressure 132/86, pulse 96, respirations 18, O2 sat 97%. GENERAL: Slept about 5 hours last night. CURRENT MEDICATIONS: The patient's current medications include Risperdal 1 mg daily, melatonin 9 mg at night, Risperdal 2 mg at night, mirtazapine 15 mg at night, and olanzapine 1.25 mg q. 2 hours p.r.n. The patient is not having any major side effects. ASSESSMENT: 1. Major neurocognitive disorder, most likely Alzheimer's, vascular with delusions, depression and behavioral disturbances. 2. Impulse control disorder, unspecified. PLAN: Continue with the current treatment. LENGTH OF STAY: 7 days. LE VALENTINE MD DR: ARNOLD/carol JOB#: [id number] / [id number] MARILOU
[2020-08-17] MEDS: LEVOTHYROXINE 25 MCG TABLET. PO SCH (05:45)
[2020-08-17 06:46] VITALS: BP 136/75
[2020-08-17] MEDS: NYSTATIN 100,000 UNITS/ML ORAL SUSPENSION 60ML BOTTLE. SWSW SCH ×4 (09:00→19:50)
[2020-08-17] MEDS: amLODIPine BESYLATE 2.5 MG TABLET PO SCH (09:09)
[2020-08-17] MEDS: POTASSIUM CHLORIDE 10 MEQ TABLET.ER. PO SCH (09:09)
[2020-08-17] MEDS: risperiDONE 1 MG TABLET. PO SCH (09:10)
[2020-08-17] MEDS: FAMOTIDINE 20 MG TABLET PO SCH (09:10)
[2020-08-17] MEDS: COLCHICINE 0.6 MG TABLET. PO SCH (09:10)
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
[2020-08-17 15:14] VITALS: BP 102/66
[2020-08-17] MEDS: MELATONIN 3 MG TABLET PO SCH (19:49)
[2020-08-17] MEDS: MIRTAZAPINE 15 MG TABLET PO SCH (19:49)
[2020-08-17] MEDS: risperiDONE 2 MG TABLET. PO SCH (19:49)
[2020-08-17] MEDS: traMADol 50 MG TABLET PO PRN (19:50)
--- NOTE | 2020-08-18 00:19 | PN ---
DATE: 08/17/2020 SUBJECTIVE: The patient was seen today, met with the staff, chart reviewed and also covering for Dr. Cates. The patient's behavior remains the same. No major behavior problems and no recent falls. OBSERVATION: VITAL SIGNS: Temperature 97.2, blood pressure 159/88, pulse 64, respirations 16, O2 sat 95%. GENERAL: Slept about 6 hours last night. Her appetite fairly good. MEDICATIONS: The patient's current medications include Risperdal 1 mg daily, melatonin 9 mg at night, Risperdal 2 mg at night, mirtazapine 15 mg at night, and olanzapine 1.2 mg q. 2 hours p.r.n. The patient denies of any side effects. ASSESSMENT: Major neurocognitive disorder, most likely Alzheimer's, vascular with delusions, depression, and behavioral disturbances. PLAN: To continue with the treatment. LENGTH OF STAY: 7 days. LE VALENTINE MD DR: ARNOLD/carol JOB#: [id number] / [id number]
[2020-08-18] MEDS: LEVOTHYROXINE 25 MCG TABLET. PO SCH (05:23)
[2020-08-18 06:03] VITALS: BP 130/78
[2020-08-18] MEDS: risperiDONE 1 MG TABLET. PO SCH (08:34)
[2020-08-18] MEDS: FAMOTIDINE 20 MG TABLET PO SCH (08:34)
[2020-08-18] MEDS: amLODIPine BESYLATE 2.5 MG TABLET PO SCH (08:35)
[2020-08-18] MEDS: POTASSIUM CHLORIDE 10 MEQ TABLET.ER. PO SCH (08:35)
[2020-08-18] MEDS: COLCHICINE 0.6 MG TABLET. PO SCH (08:35)
[2020-08-18] MEDS: NYSTATIN 100,000 UNITS/ML ORAL SUSPENSION 60ML BOTTLE. SWSW SCH ×5 (08:35→19:46)
[2020-08-18 16:15] VITALS: BP 128/80
[2020-08-18] MEDS: MIRTAZAPINE 15 MG TABLET PO SCH (19:46)
[2020-08-18] MEDS: MELATONIN 3 MG TABLET PO SCH (19:46)
[2020-08-18] MEDS: traMADol 50 MG TABLET PO PRN (19:46)
[2020-08-18] MEDS: risperiDONE 2 MG TABLET. PO SCH (19:46)
--- NOTE | 2020-08-18 23:06 | PN ---
DATE: 08/18/2020 SUBJECTIVE: The patient was seen today, met with the staff, chart reviewed and also covering for Dr. Cates. The patient's behavior has improved. No recent falls. OBSERVATION: VITAL SIGNS: Temperature 97.1, blood pressure 130/78, pulse 96, respirations 18, O2 sat 95%. Slept about 7 hours last night. The patient's appetite improved. MEDICATIONS: The patient's current medications include Risperdal 1 mg daily, melatonin 9 mg at night, Risperdal 2 mg at night, and mirtazapine 15 mg at night. She is also on olanzapine 1.25 mg q. 2 hours p.r.n. The patient is not showing any side effects. ASSESSMENT: Major neurocognitive disorder, most likely Alzheimer's, vascular with delusions, depression, and behavioral disturbances. PLAN: To continue with the treatment. LENGTH OF STAY: 7 days. LE VALENTINE MD DR: ARNOLD/carol JOB#: [id number] / [id number]
[2020-08-19] MEDS: LEVOTHYROXINE 25 MCG TABLET. PO SCH (05:32)
[2020-08-19 06:09] VITALS: BP 147/83
[2020-08-19 07:12] LABS: BASO % 0 % (0-3); EOS % 0 % (0-3); HEMATOCRIT 30.5 % (36.0-47.0); LYMPH # 1.6 x10^3/uL (1.0-4.8); LYMPH % 26 % (24-48); MEAN CORPUSCULAR HEMOGLOBIN 29 pg (25-35); MEAN CORPUSCULAR HGB CONC 33 g/dL (31-37); MEAN CORPUSCULAR VOLUME 88 fL (79-100); MONO # 1.1 x10^3/uL (0.0-1.1); MONO % 17 % (0-9); NEUT # 3.5 x10^3uL (1.8-7.7); NEUT % 57 % (31-73); PLATELET COUNT 323 x10^3/uL (140-400); RED BLOOD COUNT 3.49 x10^6/uL (3.50-5.40); WHITE BLOOD COUNT 6.1 x10^3/uL (4.0-11.0)
[2020-08-19 07:21] LABS: ALBUMIN 2.6 g/dL (3.4-5.0); ALBUMIN/GLOBULIN RATIO 0.7 (1.0-1.7); CALCIUM 8.5 mg/dL (8.5-10.1); CREATININE 0.8 mg/dL (0.6-1.0); GFR 67.5; POTASSIUM 3.5 mmol/L (3.5-5.1); TOTAL BILIRUBIN 0.3 mg/dL (0.2-1.0); TOTAL PROTEIN 6.1 g/dL (6.4-8.2)
[2020-08-19] MEDS: COLCHICINE 0.6 MG TABLET. PO SCH (08:11)
[2020-08-19] MEDS: POTASSIUM CHLORIDE 10 MEQ TABLET.ER. PO SCH (08:12)
[2020-08-19] MEDS: risperiDONE 1 MG TABLET. PO SCH (08:12)
[2020-08-19] MEDS: amLODIPine BESYLATE 2.5 MG TABLET PO SCH (08:12)
[2020-08-19] MEDS: FAMOTIDINE 20 MG TABLET PO SCH (08:12)
[2020-08-19] MEDS: NYSTATIN 100,000 UNITS/ML ORAL SUSPENSION 60ML BOTTLE. SWSW SCH ×4 (08:12→19:32)
[2020-08-19 15:29] VITALS: BP 100/65
[2020-08-19] MEDS: MIRTAZAPINE 15 MG TABLET PO SCH (19:31)
[2020-08-19] MEDS: risperiDONE 2 MG TABLET. PO SCH (19:31)
[2020-08-19] MEDS: MELATONIN 3 MG TABLET PO SCH (19:31)
[2020-08-19] MEDS ORDERED: NYST1000 PO (22:14)
[2020-08-19] MEDS ORDERED: METH57CR17 TP (22:15)
[2020-08-19] MEDS ORDERED: TRAM50TA PO (22:17)
[2020-08-19] MEDS ORDERED: OLAN5TAB99 PO (22:18)
[2020-08-19] MEDS ORDERED: MAGN24003 PO (22:19)
[2020-08-19] MEDS ORDERED: MAG355OR17 PO (22:19)
--- NOTE | 2020-08-19 22:41 | DS ---
DATE OF DISCHARGE: 08/20/2020 FINAL DIAGNOSES: AXIS I: 1. Major neurocognitive disorder, Alzheimer's, vascular with delusions, depression and behavioral disturbances. 2. Anxiety disorder, unspecified. 3. Impulse control disorder, unspecified. AXIS II: None. AXIS III: Recent urinary tract infection, hypertension, hypothyroidism, gout, hypokalemia, status post subdural hematoma from a fall prior to admission, gastroesophageal reflux disease, osteoarthritis and cervical radiculopathy. REASON FOR ADMISSION: This 89-year-old female was referred from [facility] assisted living [facility] in [place], [place]. The patient apparently had problems with behavior, increased confusion and paranoia that people are there getting murdered by the staff. She was also exhibited impulsive behaviors, agitation, refusing medications. The patient apparently failed to respond to receiving psychotropic drugs. HISTORY OF PRESENT ILLNESS: The patient at the time of admission was confused, rambling, unable to sit still, pacing constantly and also distracted easily. The patient's power of finance attorney is Reid Maza. The patient has a history of dementia, Alzheimer's, vascular type. She has been residing at the above facility and getting confused, paranoid, and agitated recently. The patient also had a UTI that is being treated and was treated. The patient also had sleep and appetite problems. HOSPITAL COURSE: The patient had a physical exam, routine lab work including CBC, chem profile, which were all within normal range except for hemoglobin 10. The patient's sodium was slightly elevated at 147 on admission, BUN was 23. The patient was involved in the program including individual, group, and other activities. The patient did not have any fall during her stay here. The patient's medications included Risperdal 1 mg daily, melatonin 9 mg at night, Risperdal 2 mg at night, mirtazapine 15 mg at night and also olanzapine 1.25 mg q. 2 hours p.r.n. The patient was also on tramadol 50 mg q.6 hours p.r.n., Colchicine 0.6 mg daily, amlodipine 2.5 mg daily, potassium chloride 10 mEq daily, Pepcid daily, levothyroxine 25 mcg daily. The patient improved significantly. The patient did not present with any major problems at the time of discharge. AFTERCARE PLAN: The patient to be discharged to return to [facility]. The patient will continue to see her psychiatrist and the primary care doctor and continue with the above medications. The patient at the time of discharge was not considered as a fall risk. She is not expressing any suicidal or homicidal thoughts. LE VALENTINE MD DR: ARNOLD/carol JOB#: [id number] / [id number] MARILOU
[2020-08-20] MEDS: LEVOTHYROXINE 25 MCG TABLET. PO SCH (05:18)
[2020-08-20 06:20] VITALS: BP 143/92
[2020-08-20] MEDS: FAMOTIDINE 20 MG TABLET PO SCH (09:23)
[2020-08-20] MEDS: COLCHICINE 0.6 MG TABLET. PO SCH (09:23)
[2020-08-20] MEDS: POTASSIUM CHLORIDE 10 MEQ TABLET.ER. PO SCH (09:23)
[2020-08-20 09:24] VITALS: BP 143/92
[2020-08-20] MEDS: amLODIPine BESYLATE 2.5 MG TABLET PO SCH (09:24)
[2020-08-20] MEDS: NYSTATIN 100,000 UNITS/ML ORAL SUSPENSION 60ML BOTTLE. SWSW SCH (09:24)
[2020-08-20] MEDS: risperiDONE 1 MG TABLET. PO SCH (09:24)
[2020-08-20] MEDS ORDERED: QUET50TA5 PO (09:53)
== END 2020-08-20 10:15 | DRG 57 ==
LOC: GEROPSY 14:45
PROVIDERS: ADMIT Psychiatry & Neurology Psychiatry; ATTEND Psychiatry & Neurology Psychiatry
DX: G30.9 Alzheimer's disease, unspecified (principal); F01.51 Vascular dementia, unspecified severity, with behavioral disturbance; F32.3 Major depressive disorder, single episode, severe with psychotic features; F02.81 Dementia in other diseases classified elsewhere, unspecified severity, with behavioral disturbance; N39.0 Urinary tract infection, site not specified; E03.9 Hypothyroidism, unspecified; F41.1 Generalized anxiety disorder; F63.9 Impulse disorder, unspecified; I10 Essential (primary) hypertension; M19.90 Unspecified osteoarthritis, unspecified site; Z66 Do not resuscitate; Z79.890 Hormone replacement therapy; Z79.899 Other long term (current) drug therapy; Z91.81 History of falling; E87.6 Hypokalemia; K21.9 Gastro-esophageal reflux disease without esophagitis; M10.9 Gout, unspecified; M47.22 Other spondylosis with radiculopathy, cervical region; Z20.822 Contact with and (suspected) exposure to COVID-19
CPT/HCPCS: 36415; 80053; 80061; 82306; 82607; 83036; 83540; 83550; 83735; 84436; 84443; 84480; 85025; 85379; 86592; 93005; U0003; U0005; 97110; 97530; 97535